=== PATIENT | male | born 1950 | race Caucasian/White ===

== ENCOUNTER 2016-08-24 10:30 | Observation (INO) | payer BC, MEDICARE ==
[2016-08-24] MEDS ORDERED: NS 0.9% 1000 ML* 2,000 ML IV ONE (11:29)
[2016-08-24] MEDS ORDERED: Famotidine IV* 10 MG/ML 2 ML (20 mg) IV ONE (11:30)
[2016-08-24 11:50] LABS: Hematocrit 32 % (42-52); Hemoglobin 10.7 g/dl (14.0-18.0); Mean Corpuscular HGB Conc 34 g/dl (31-36); Mean Corpuscular Hemoglobin 35 pg (27-31); Mean Corpuscular Volume 103 fL (80-94); Mean Platelet Volume 8 um3 (7.4-10.4); Red Blood Count 3.08 10^6/ul (4.0-5.4); Red Cell Distribution Width 16 % (10.5-15); White Blood Count 5.8 10^3/ul (3.5-10.8)
[2016-08-24 12:07] LABS: Albumin 3.5 g/dL (3.2-5.2); BUN/Creatinine Ratio 8.6 (8-20); C Reactive Protein 2.54 mg/L (< 5.00); Calcium 8.5 mg/dL (8.6-10.3); EGFR African American 180.3 (>60); EGFR Non-African American 140.2 (>60); Globulin 2.4 g/dL (2-4); Magnesium 1.5 mg/dL (1.9-2.7); Total Protein 5.9 g/dL (6.4-8.9)
[2016-08-24 12:08] LABS: Potassium 2.6 mmol/L (3.5-5.0)
[2016-08-24 12:09] LABS: Troponin I 0.01 ng/mL (<0.04)
[2016-08-24 12:17] LABS: TSH (Thyroid Stimulating Horm) 0.7 mcIU/mL (0.34-5.60)
--- NOTE | 2016-08-24 12:20 | RAD ---
HISTORY: Syncope COMPARISONS: March 26, 2010 VIEWS:1: Single frontal portable view of the chest at 11:30 AM FINDINGS: LINES AND TUBES: None. CARDIOMEDIASTINAL SILHOUETTE: The cardiomediastinal silhouette is normal for portable technique. PLEURA: The costophrenic angles are sharp. No pleural abnormalities are noted. LUNG PARENCHYMA: The lungs are clear. ABDOMEN: The upper abdomen is clear. There is no subphrenic gas. BONES AND SOFT TISSUES: No bone or soft tissue abnormalities are noted. IMPRESSION: NO ACTIVE CARDIOPULMONARY DISEASE.
[2016-08-24] MEDS ORDERED: Magnesium Sulfate 2 GM IV* 2 GM/50 ML BAG IVPB ONE (12:45)
[2016-08-24 13:28] LABS: Urine Bilirubin Negative (Negative); Urine Glucose Negative (Negative); Urine Nitrite Negative (Negative)
[2016-08-24] MEDS: NS 0.9% w/ 20 Meq KCL 1000 ML* 1,000 ML IV SCH ×2 (14:01→21:09)
[2016-08-24] MEDS ORDERED: Iohexol 300* (CONTRAST) 10 ML SDV IV ONE (15:16)
[2016-08-24] MEDS ORDERED: Nicotine Inhaler* 10 MG AMP INH PRN (16:19)
[2016-08-24] MEDS ORDERED: Mouth Piece, Nicotine* 1 EACH CARTRIDGE INH PRN (16:19)
[2016-08-24] MEDS: KCL 20 MEQ/100 ML IVPREMIX* 20 MEQ/100 ML BAG IV SCH ×3 (16:24→22:24)
[2016-08-24] MEDS: Nicotine PATCH 14 MG/24 HR* PATCH TRANSDERM SCH (16:32)
[2016-08-24 16:56] LABS: Hematocrit 31 % (42-52); Hemoglobin 10.5 g/dl (14.0-18.0); Mean Corpuscular HGB Conc 33 g/dl (31-36); Mean Corpuscular Hemoglobin 35 pg (27-31); Mean Corpuscular Volume 104 fL (80-94); Mean Platelet Volume 8 um3 (7.4-10.4); Red Blood Count 3.02 10^6/ul (4.0-5.4); Red Cell Distribution Width 16 % (10.5-15); White Blood Count 4.7 10^3/ul (3.5-10.8)
--- NOTE | 2016-08-24 17:47 | RAD ---
INDICATION: Abdominal pain. Syncope. COMPARISON: CT April 07, 2016 TECHNIQUE: Axial source images were obtained from the hemidiaphragms to the symphysis pubis following administration of oral and intravenous contrast. 85 mL Omnipaque 300 was utilized. Coronal and sagittal reconstructed images were acquired. Lung bases: There is minimal left basilar scarring or atelectasis. Liver: The liver is mildly enlarged with findings of hepatic steatosis. There are no masses. There is no ductal dilatation. Gallbladder: There are no calcified gallstones. There is no evidence of wall thickening or pericholecystic fluid. Spleen: The spleen is normal in size. There are no masses. Pancreas: There is no focal pancreatic mass or ductal dilatation. Adrenal glands: There is no evidence of adrenal mass. Kidneys: The kidneys are normal in size and position. There are prompt nephrograms and there is prompt excretion bilaterally. There are no renal parenchymal masses. There is no evidence of nephrolithiasis. Adenopathy: There is no evidence of adenopathy by size criteria. Fluid collections: There is a small amount of mesenteric edema with trace ascites in the minor pelvis. Vessels:There are atherosclerotic changes involving the aorta and iliac vessels. There is no focal aneurysm. The IVC appears normal. GI tract: The stomach and proximal small bowel is unremarkable. There is a rounded soft tissue density in the region of the terminal ileum measuring 1.8 cm. This could represent a small bowel mass or could even represent an appendiceal mass. Suggest colonoscopy. Pelvic organs: The prostate is mildly enlarged Bladder: There is trabeculation of the bladder wall. Abdominal and pelvic soft tissues: There is a fat-containing left inguinal hernia spondylitic change lumbar spine. Osseous structures: Spondylitic change of the lumbar spine with multilevel vacuum disc phenomena, endplate sclerosis, and marginal osteophyte formation. Other: None IMPRESSION: 1. Marked hepatic steatosis 2. Possible mass terminal ileum. Suggest follow-up colonoscopy 3. Mild prostatic enlargement. 4. Trabeculation of the bladder wall 5. Fat-containing left femoral hernia
--- NOTE | 2016-08-24 18:00 | ED ---
Giovanny Abad Erika, scribed for Rene Hatch MD on 08/24/16 at 1130 . Syncope/Near Syncope - HPI Summary HPI Summary: Patient is a 65-year-old male presenting to the ED with a CC of syncopal episode this morning. Patient reports that he experienced a syncopal episode right after he stood up from bed this morning. He notes lightheadedness prior to the episode, but denies chest pain. He estimates LOC to be 10-15 minutes. Patient was able to get up by himself afterwards, and denies chest pain after the episode as well. Patient was first seen at [place] this morning and was sent to the ED. He reports similar episodes of syncope, most recently a few weeks ago. Patient also reports that he has had constant epigastric pain for the past few months, as well as slight diffuse abdominal pain. Pain is aggravated by food. Patient notes that he had been having diarrhea, so has been taking kaopectate for a few months. Since then, he states he has 1 BM/day which is usually hard and black. Today, patient had a soft, black BM. Patient denies chest and groin pain. Patient also denies recent illness and dehydration. Patient reports a Hx GERD, but states he is not compliant with his medication. He denies Hx HTN, abdominal surgeries. Patient drinks a few drinks/day. - History Of Current Complaint Time Seen by Provider: 08/24/16 10:58 Hx Obtained From: Patient Onset/Duration: Gradual Onset, Lasting Minutes - 10-15 minute LOC, Resolved Timing: Constant Context: Unwitnessed, Loss Of Consciousness Activity At Onset: Exertion - Stood up from bed Aggravating Factor(s): Position Change - supine to erect Alleviating Factor(s): Spontaneous Resolution Associated Signs And Symptoms: GI Blood Loss - possible, Lightheadedness - Allergies/Home Medications Allergies/Adverse Reactions: Allergies Allergy/AdvReac Type Severity Reaction Status Date / Time No Known Allergies Allergy Verified 04/07/16 18:49 Home Medications: Home Medications NK [No Home Medications Reported] 08/24/16 [History Confirmed 08/24/16] PMH/Surg Hx/FS Hx/Imm Hx Cardiovascular History: Denies: Hx Hypercholesterolemia, Hx Hypertension GI History: Reports: Hx Gastroesophageal Reflux Disease - Family History Known Family History: Positive: Cardiac Disease, Other - Cancer - Social History Alcohol Use: Daily Hx Substance Use: No Substance Use Type: Reports: None Hx Tobacco Use: Yes Smoking Status (MU): Heavy Every Day Tobacco Smoker Review of Systems Negative: Chest Pain Gastrointestinal: Other - black stools Positive: Abdominal Pain Neurological: Other - lightheadedness Positive: Syncope All Other Systems Reviewed And Are Negative: Yes Physical Exam Triage Information Reviewed: Yes Vital Signs On Initial Exam: Temp Pulse Resp BP Pulse Ox 98.2 F 99 25 124/86 97 08/24/16 11:00 08/24/16 12:00 08/24/16 12:00 08/24/16 12:00 08/24/16 12:00 Vital Signs Reviewed: Yes Appearance: Positive: Well-Appearing, No Pain Distress Skin: Positive: Warm, Skin Color Reflects Adequate Perfusion, Dry Head/Face: Positive: Normal Head/Face Inspection Eyes: Positive: EOMI, BLAIR ENT: Positive: Normal ENT inspection Neck: Positive: Supple, Nontender Respiratory/Lung Sounds: Positive: Clear to Auscultation, Breath Sounds Present Cardiovascular: Positive: RRR Abdomen Description: Positive: Soft, Other: - epigastric tenderness Bowel Sounds: Positive: Present Musculoskeletal: Positive: Normal, Strength/ROM Intact Neurological: Positive: Normal, Sensory/Motor Intact, Alert, Oriented to Person Place, Time Psychiatric: Positive: Affect/Mood Appropriate Diagnostics - Vital Signs Vital Signs Temp Pulse Resp BP Pulse Ox 08/24/16 14:30 93 18 133/78 98 08/24/16 14:00 93 23 128/80 97 08/24/16 13:30 24 131/86 08/24/16 13:14 27 137/91 08/24/16 13:13 23 08/24/16 12:30 97 21 130/82 98 08/24/16 12:00 99 25 124/86 97 08/24/16 11:30 102 23 110/93 96 08/24/16 11:12 103 133/85 94 08/24/16 11:00 98.2 F 100 20 133/79 94 08/24/16 10:39 102 97 - Laboratory Lab Results: Lab Results 08/24/16 08/24/16 08/24/16 Range/Units 11:28 11:28 11:28 WBC 5.8 (3.5-10.8) 10^3/ul RBC 3.08 L (4.0-5.4) 10^6/ul Hgb 10.7 L (14.0-18.0) g/dl Hct 32 L (42-52) % MCV 103 H (80-94) fL MCH 35 H (27-31) pg MCHC 34 (31-36) g/dl RDW 16 H (10.5-15) % Plt Count 341 (150-450) 10^3/ul MPV 8 (7.4-10.4) um3 Neut % (Auto) 67.9 (38-83) % Lymph % (Auto) 22.0 L (25-47) % [place] % (Auto) 8.9 (1-9) % Eos % (Auto) 0.4 (0-6) % Baso % (Auto) 0.8 (0-2) % Absolute Neuts (auto) 4.0 (1.5-7.7) 10^3/ul Absolute Lymphs (auto) 1.3 (1.0-4.8) 10^3/ul Absolute Monos (auto) 0.5 (0-0.8) 10^3/ul Absolute Eos (auto) 0 (0-0.6) 10^3/ul Absolute Basos (auto) 0 (0-0.2) 10^3/ul Absolute Nucleated RBC 0.01 10^3/ul Nucleated RBC % 0.2 INR (Anticoag Therapy) 0.89 (0.89-1.11) APTT 26.2 (26.0-36.3) seconds Sodium (133-145) mmol/L Potassium (3.5-5.0) mmol/L Chloride (101-111) mmol/L Carbon Dioxide (22-32) mmol/L Anion Gap (2-11) mmol/L BUN (6-24) mg/dL Creatinine (0.67-1.17) mg/dL Est GFR ( Amer) (>60) Est GFR (Non-Af Amer) (>60) BUN/Creatinine Ratio (8-20) Glucose (70-100) mg/dL Lactic Acid (0.5-2.0) mmol/L Calcium (8.6-10.3) mg/dL Magnesium (1.9-2.7) mg/dL Total Bilirubin (0.2-1.0) mg/dL AST (13-39) U/L ALT (7-52) U/L Alkaline Phosphatase (34-104) U/L Total Creatine Kinase (10-223) U/L CK-MB (CK-2) (0.6-6.3) ng/mL Troponin I (<0.04) ng/mL C-Reactive Protein (< 5.00) mg/L B-Natriuretic Peptide 109 H ( - 100) pg/mL Total Protein (6.4-8.9) g/dL Albumin (3.2-5.2) g/dL Globulin (2-4) g/dL Albumin/Globulin Ratio (1-3) Lipase (11.0-82.0) U/L TSH (0.34-5.60) mcIU/mL Urine Color Urine Appearance Urine pH (5-9) Ur Specific [place] (1.010-1.030) Urine Protein (Negative) Urine Ketones (Negative) Urine Blood (Negative) Urine Nitrate (Negative) Urine Bilirubin (Negative) Urine Urobilinogen (Negative) Ur Leukocyte Esterase (Negative) Urine Glucose (Negative) Blood Type Antibody Screen 08/24/16 08/24/16 08/24/16 Range/Units 11:28 11:28 11:28 WBC (3.5-10.8) 10^3/ul RBC (4.0-5.4) 10^6/ul Hgb (14.0-18.0) g/dl Hct (42-52) % MCV (80-94) fL MCH (27-31) pg MCHC (31-36) g/dl RDW (10.5-15) % Plt Count (150-450) 10^3/ul MPV (7.4-10.4) um3 Neut % (Auto) (38-83) % Lymph % (Auto) (25-47) % [place] % (Auto) (1-9) % Eos % (Auto) (0-6) % Baso % (Auto) (0-2) % Absolute Neuts (auto) (1.5-7.7) 10^3/ul Absolute Lymphs (auto) (1.0-4.8) 10^3/ul Absolute Monos (auto) (0-0.8) 10^3/ul Absolute Eos (auto) (0-0.6) 10^3/ul Absolute Basos (auto) (0-0.2) 10^3/ul Absolute Nucleated RBC 10^3/ul Nucleated RBC % INR (Anticoag Therapy) (0.89-1.11) APTT (26.0-36.3) seconds Sodium 135 (133-145) mmol/L Potassium 2.6 L* (3.5-5.0) mmol/L Chloride 95 L (101-111) mmol/L Carbon Dioxide 31 (22-32) mmol/L Anion Gap 9 (2-11) mmol/L BUN 5 L (6-24) mg/dL Creatinine 0.58 L (0.67-1.17) mg/dL Est GFR ( Amer) 180.3 (>60) Est GFR (Non-Af Amer) 140.2 (>60) BUN/Creatinine Ratio 8.6 (8-20) Glucose 104 H (70-100) mg/dL Lactic Acid 2.4 H* (0.5-2.0) mmol/L Calcium 8.5 L (8.6-10.3) mg/dL Magnesium 1.5 L (1.9-2.7) mg/dL Total Bilirubin 1.00 (0.2-1.0) mg/dL AST 47 H (13-39) U/L ALT 36 (7-52) U/L Alkaline Phosphatase 97 (34-104) U/L Total Creatine Kinase 58 (10-223) U/L CK-MB (CK-2) 3.0 (0.6-6.3) ng/mL Troponin I 0.01 (<0.04) ng/mL C-Reactive Protein 2.54 (< 5.00) mg/L B-Natriuretic Peptide ( - 100) pg/mL Total Protein 5.9 L (6.4-8.9) g/dL Albumin 3.5 (3.2-5.2) g/dL Globulin 2.4 (2-4) g/dL Albumin/Globulin Ratio 1.5 (1-3) Lipase 24 (11.0-82.0) U/L TSH 0.70 (0.34-5.60) mcIU/mL Urine Color Urine Appearance Urine pH (5-9) Ur Specific [place] (1.010-1.030) Urine Protein (Negative) Urine Ketones (Negative) Urine Blood (Negative) Urine Nitrate (Negative) Urine Bilirubin (Negative) Urine Urobilinogen (Negative) Ur Leukocyte Esterase (Negative) Urine Glucose (Negative) Blood Type O Positive Antibody Screen Negative 08/24/16 Range/Units 13:12 WBC (3.5-10.8) 10^3/ul RBC (4.0-5.4) 10^6/ul Hgb (14.0-18.0) g/dl Hct (42-52) % MCV (80-94) fL MCH (27-31) pg MCHC (31-36) g/dl RDW (10.5-15) % Plt Count (150-450) 10^3/ul MPV (7.4-10.4) um3 Neut % (Auto) (38-83) % Lymph % (Auto) (25-47) % [place] % (Auto) (1-9) % Eos % (Auto) (0-6) % Baso % (Auto) (0-2) % Absolute Neuts (auto) (1.5-7.7) 10^3/ul Absolute Lymphs (auto) (1.0-4.8) 10^3/ul Absolute Monos (auto) (0-0.8) 10^3/ul Absolute Eos (auto) (0-0.6) 10^3/ul Absolute Basos (auto) (0-0.2) 10^3/ul Absolute Nucleated RBC 10^3/ul Nucleated RBC % INR (Anticoag Therapy) (0.89-1.11) APTT (26.0-36.3) seconds Sodium (133-145) mmol/L Potassium (3.5-5.0) mmol/L Chloride (101-111) mmol/L Carbon Dioxide (22-32) mmol/L Anion Gap (2-11) mmol/L BUN (6-24) mg/dL Creatinine (0.67-1.17) mg/dL Est GFR ( Amer) (>60) Est GFR (Non-Af Amer) (>60) BUN/Creatinine Ratio (8-20) Glucose (70-100) mg/dL Lactic Acid (0.5-2.0) mmol/L Calcium (8.6-10.3) mg/dL Magnesium (1.9-2.7) mg/dL Total Bilirubin (0.2-1.0) mg/dL AST (13-39) U/L ALT (7-52) U/L Alkaline Phosphatase (34-104) U/L Total Creatine Kinase (10-223) U/L CK-MB (CK-2) (0.6-6.3) ng/mL Troponin I (<0.04) ng/mL C-Reactive Protein (< 5.00) mg/L B-Natriuretic Peptide ( - 100) pg/mL Total Protein (6.4-8.9) g/dL Albumin (3.2-5.2) g/dL Globulin (2-4) g/dL Albumin/Globulin Ratio (1-3) Lipase (11.0-82.0) U/L TSH (0.34-5.60) mcIU/mL Urine Color Yellow Urine Appearance Clear Urine pH 6.0 (5-9) Ur Specific [place] 1.010 (1.010-1.030) Urine Protein Negative (Negative) Urine Ketones Trace H (Negative) Urine Blood Negative (Negative) Urine Nitrate Negative (Negative) Urine Bilirubin Negative (Negative) Urine Urobilinogen Negative (Negative) Ur Leukocyte Esterase Negative (Negative) Urine Glucose Negative (Negative) Blood Type Antibody Screen Result Diagrams: 08/24/16 16:44 08/24/16 11:28 Diagnostic Studies Comment: Stool occult blood - negative Lab Statement: Any lab studies that have been ordered have been reviewed, and results considered in the medical decision making process. - Radiology CXR Radiology Interpretation Completed By: Radiologist - IMPRESSION: NO ACTIVE CARDIOPULMONARY DISEASE. - CT CT A/P W/ CT Interpretation Completed By: Radiologist - IMPRESSION: 1. Marked hepatic steatosis 2. Possible mass terminal ileum. Suggest follow-up colonoscopy 3. Mild prostatic enlargement. 4. Trabeculation of the bladder wall 5. Fat- containing left femoral hernia - EKG 11:34 Cardiac Rate: NL - at 98 bpm EKG Rhythm: Sinus Rhythm Ectopy: None EKG Interpretation: Depressed ST in V4-V5 Re-Evaluation - Re-Evaluation First Eval Re-Evaluation Time: 12:59 Comment: Discussed lab results and XR with patient. Discussed possibility of admission. Pt declines admission at this time Second Eval Re-Evaluation Time: 13:23 Comment: On further evaluation and counseling, patient agrees to admission. Will contact hospitalist Course/Dx Assessment/Plan: ADMIT HOSPITALIST STABLE. - Diagnoses Provider Diagnoses: Syncope, Abdominal pain - Physician Notifications Discussed Care Of Patient With: Dr. Hi (hospitalist) at 13:24 - agrees to admit Discharge - Discharge Plan Condition: Stable Disposition: ADMITTED TO [facility] The documentation as recorded by the Giovanny dobbs Erika accurately reflects the service I personally performed and the decisions made by me, Rene Hatch MD.
[2016-08-24] MEDS ORDERED: Nicotine Patch Removal NOTE PATCH OFF SCH (21:00)
[2016-08-24] MEDS: Heparin VIAL(*) 5000 UNITS/ML VIAL (FIVE THOUSAND) SUBCUT SCH (22:27)
--- NOTE | 2016-08-24 22:57 | HP ---
HISTORY AND PHYSICAL: DATE OF ADMISSION: 08/24/16 PRIMARY CARE PHYSICIAN: JOSE R Lizarraga ATTENDING PHYSICIAN: Dr. Carl Hi *(dictation provided by Allison Hurtado NP) CHIEF COMPLAINT: Abdominal pain and fainting. HISTORY OF PRESENT ILLNESS: Mr. Tavarez is a 65-year-old male with a past medical history of reported hypertension but no medications, who presents today to the hospital with concern for abdominal pain and episodes of passing out over the past 5 to 6 months. Mr. Tavarez states that he has had issues with ongoing mid and left quadrant abdominal pain as well as daily diarrhea for several months. From his recollection, this has at least been in the past 5 to 6 months. He reports that he feels dizzy and lightheaded. He has had multiple episodes where he goes from a sitting to standing position and passes out. His daughter who is in the room notes that he has also had this episode of passing out while in a standing position. He has had chills in the a.m., but he has had no fever. He reports that his stools are loose and black. He suspected that the blackness of the stool is secondary to Pepto-Bismol. He states he drinks one bottle of Pepto-Bismol per week and that this "helps." His daughter who is here notes that he has had a significant weight loss. Approximately 1 year ago, he had a 40- to 50-pound weight loss for which he did seek out medical care. It is not clear exactly what that workup was as he cannot recall and she is not aware. He states that since then, over this year, he has probably lost 20 pounds. He reports a very poor appetite. He notes that daily intake would be a piece of toast for breakfast, half a sandwich for lunch, and no dinner. He states he does not eat simply because his appetite is poor. He does not endorse any nausea or vomiting. He is a daily drinker and reports drinking what he calls 2 whiskeys a day. He also is a continued at least half a pack smoker. In the emergency room, Mr. Tavarez had a chest x-ray which showed no acute process. He had labs, which showed a new anemia with a hemoglobin of 10.7. He has low potassium at 2.6, lactic acid 2.4, and a magnesium of 1.5. He is ordered to have a CT of the abdomen and pelvis, but it is not completed yet. PAST MEDICAL HISTORY: 1. Question of alcoholism. 2. Osteoarthritis. 3. History of colonic polyps. MEDICATIONS: Pepto-Bismol. ALLERGIES: No known drug allergies. FAMILY HISTORY: The patient reports that his father is still alive, but has had coronary artery disease and mother from an abdominal cancer, type unknown. SOCIAL HISTORY: The patient is a half a pack to a pack a day smoker. He drinks 2 whiskeys a day and measures that out at about a 2-inch level with his hand for me today. His daughter nods in the background that he has had issues with alcoholism in the past. There is no report of drug use. He lives with his . He states that his daughter Ashley would be the healthcare proxy. REVIEW OF SYSTEMS: Constitutional: No fevers, no chills, positive for weight loss somewhere between 60 and 70 pounds over the past 18 months or more. Cardiac: No chest pain. No edema. Respiratory: No cough, no hemoptysis, no shortness of breath. GI: No nausea or vomiting. Positive for diarrhea. Positive for mid and left quadrant abdominal pain. : No gross hematuria or dysuria. Neuro: No focal weakness or sensory loss. Eyes: No visual complaints. ENT: No dysphagia. Musculoskeletal: No arthralgias or myalgias. Skin: No rashes or lesions. Psych: No depression or anxiety. PHYSICAL EXAMINATION GENERAL: Mr. Tavarez is lying in bed. He is in no acute distress. He is calm and cooperative with my examination. VITAL SIGNS: Temperature 98.5, heart rate 109, respiratory rate 18, O2 saturation is 99% on room air, blood pressure 142/79. HEART: S1 and S2. No murmur, rubs, or gallop. Regular. LUNGS: Clear to auscultation bilaterally with no accessory muscle use and good aeration. ABDOMEN: Soft. There is tenderness to palpation along the mid abdomen and both along the left and right quadrant. He initially did not know pain until pressed up in the right upper quadrant. He does appear to have some abdominal distention and perhaps splenomegaly. Liver was unable to be palpated today. EXTREMITIES: No cyanosis or edema. SKIN: Intact. NEUROLOGIC: He is alert and oriented x3. He moves all extremities equally. There is no facial asymmetry or focal weakness. Extraocular movements are intact. LABORATORY DATA/DIAGNOSTIC STUDIES: Sodium 135, potassium 2.6, chloride 95, serum bicarbonate 31, BUN 5, creatinine 0.58, glucose 104, lactic acid 2.4, magnesium 1.5, CRP 2.54, BNP 109. WBC 5.8, hemoglobin 10.7, hematocrit 32, and platelet count 341. INR 0.89. Chest x-ray shows no acute process. EKG shows a sinus rhythm with heart rate of 90. No evidence of ischemia. ASSESSMENT: Mr. Tavarez is a 65-year-old male with no significant past medical history as he has not routinely sought out medical care, who presents today to the hospital with concern for 5 to 6 months or more of abdominal pain, diarrhea , now with lightheadedness and dizziness. PLAN: Our plans are for observation in the hospital for the followin. Abdominal pain. The patient's story is certainly concerning as he has had several months of diarrhea with significant weight loss and no appetite, now with lightheadedness, dizziness, and passing out. So far, his workup has been unrevealing but we are waiting for CT of the abdomen and pelvis. The patient's guaiac stool is negative, so perhaps his dark stool is related to Pepto-Bismol. 2. Syncope. I suspect the patient's dizziness and lightheadedness is secondary to dehydration and orthostasis. Orthostatic vital signs are yet to be checked but they are ordered. The patient will have a telemetry monitoring. Plan to check a transthoracic echocardiogram given the syncope. 3. Hypokalemia. I suspect this is secondary to diarrhea. Plan to replete and recheck in the a.m. 4. Hypomagnesemia. Again secondary to diarrhea. Plan to replete and check in the a.m. 5. Anemia. The patient's hemoglobin is 10.7, which is lower than last check, which was sometime ago. He is having dark tarry stools, but I see that the guaiac is negative. Plan to hydrate and recheck in the a.m. No indication for transfusion at this point. 6. Lactic acidosis. The patient's lactic acid is mildly elevated. The patient has been hydrated. We plan to recheck that now. 7. DVT prophylaxis with heparin subcu. 8. Code status. He is a DNR and the form was completed in the presence of his daughter. 9. Disposition. To telemetry. TIME SPENT: Approximately 70 minutes was spent on admission of this patient; more than half the time was spent with the patient at the bedside reviewing the events leading up to this hospitalization, performing the physical examination, and reviewing the plan of care. ALLISON HURTADO NP CC: JOSE R Lizarraga* [id number]/CPS #: [id number] MTDD
[2016-08-25] MEDS: NS 0.9% w/ 20 Meq KCL 1000 ML* 1,000 ML IV SCH (03:15)
[2016-08-25] MEDS: Heparin VIAL(*) 5000 UNITS/ML VIAL (FIVE THOUSAND) SUBCUT SCH ×2 (05:30→14:26)
[2016-08-25 07:05] LABS: BUN/Creatinine Ratio 6.3 (8-20); Calcium 7.7 mg/dL (8.6-10.3); EGFR African American 224.3 (>60); EGFR Non-African American 174.4 (>60); Potassium 3.2 mmol/L (3.5-5.0)
[2016-08-25] MEDS: Nicotine PATCH 14 MG/24 HR* PATCH TRANSDERM SCH (08:48)
[2016-08-25] MEDS: KCL 20 MEQ/100 ML IVPREMIX* 20 MEQ/100 ML BAG IV SCH ×2 (08:48→12:45)
--- NOTE | 2016-08-25 11:14 | ECHO ---
Patient: BALTAZAR BAXTER [facility] Rec#: [id number] : 1950 Date: 08/25/2016 Age: 65y Height: 175.26 cm / 69.0 in Weight: 63.5 kg / 140.0 lbs Sex: M BSA: 1.78 Room#: 433 Admit Date#: 08/24/2016 Type: Inpatient Referring: Allison Hurtado NP Reading: Len Abbasi MD Mill Stenciler: Elvia Josue Mill Stenciler: Juana Sanchez RN RDCS Transthoracic Echocardiogram Indication: Syncope BP: 128/74 HR: 80 Rhythm: NSR Findings History: GERD, Smoker, osteoarthritis, ETOH use. Technical Comments: The study is technically limited due to the patient's smoking history. Completed at 0925. Left Ventricle: The left ventricular chamber size is normal. Mild concentric left ventricular hypertrophy is observed. There is increased basal septal hypertrophy noted without evidence of an increased gradient across the left ventricular outflow tract. Global left ventricular wall motion and contractility are within normal limits. There is normal left ventricular systolic function. The estimated ejection fraction is 50-55%. Closer to 55%. There is a left ventricular septal wall motion abnormality observed, possibly due to the presence of a right bundle branch block. There is an E to A reversal in the mitral valve flow pattern suggestive of diastolic dysfunction. Left Atrium: The left atrial chamber size is normal. Right Ventricle: The right ventricle wall thickness is mildly increased. The right ventricular cavity size is normal. The right ventricular global systolic function is normal. Right Atrium: The right atrial cavity size is normal. Aortic Valve: The aortic valve is trileaflet. The aortic valve leaflets are mildly thickened. There is moderate thickening of the left coronary cusp. There is moderate thickening of the right coronary cusp. Systolic excursion of the right coronary cusp is reduced. Systolic excursion of the left coronary cusp is reduced. There is aortic annular calcification. There is a trace of aortic regurgitation. There is no evidence of aortic stenosis. Mitral Valve: Moderate mitral annular calcification present. The mitral valve leaflets are mildly thickened. There is trace to mild mitral regurgitation. There is no evidence of mitral stenosis. Tricuspid Valve: The tricuspid valve leaflets are mildly thickened. There is trace tricuspid regurgitation. There is evidence that pulmonary hypertension may be underestimated. There is no tricuspid stenosis. Pulmonic Valve: The pulmonic valve appears normal. There is a trace pulmonic regurgitation. There is no pulmonic stenosis. Pericardium: There is no significant pericardial effusion. Aorta: There is no dilatation of the ascending aorta. The aortic arch is not well visualized. There is no dilation of the aortic root. Pulmonary Artery: The main pulmonary artery appears normal. Venous: The inferior vena cava appears normal in size. There is a greater than 50% respiratory change in the inferior vena cava dimension. Summary: There was not any prior study for comparison. Conclusions Mild concentric left ventricular hypertrophy is observed. There is increased basal septal hypertrophy noted without evidence of an increased gradient across the left ventricular outflow tract. The estimated ejection fraction is 50-55%. Closer to 55%. There is a left ventricular septal wall motion abnormality observed, possibly due to the presence of a right bundle branch block. There is an E to A reversal in the mitral valve flow pattern suggestive of diastolic dysfunction. The right ventricle wall thickness is mildly increased. The aortic valve leaflets are mildly thickened. There is moderate thickening of the left coronary cusp and the right coronary cusp. Systolic excursion of the right coronary cusp is reduced and the left coronary cusp is reduced. There is trace to mild mitral regurgitation. There is trace tricuspid regurgitation. Measurements Name Value Normal Range RVIDd (AP) 2D 2.4 cm (0.9 - 2.6) RVDdMajor (2D) 3.5 cm (2.2 - 4.4) RVAW (2D) 0.6 cm (0.2 - 0.5) RAd ISD 4CH 4.8 cm (3.4 - 4.9) RA (A4C)W 3.6 cm (2.9 - 4.6) IVSd (2D) 1.3 cm (0.6 - 1) LVPWd (2D) 1.2 cm (0.6 - 1) LVIDd (2D) 3.7 cm (3.6 - 5.4) LVIDs (2D) 2.7 cm - LV FS (2D) 28 % (25 - 45) Aortic Annulus 2.2 cm (1.4 - 2.6) Ao root diameter (2D) 3.3 cm (2.1 - 3.5) Ascending Ao 3.3 cm (2.1 - 3.4) LA dimension (AP) 2D 3.3 cm (2.3 - 3.8) LAd ISD 4CH 5.2 cm (2.9 - 5.3) LA ISD 4CH W 3.8 cm (2.5 - 4.5) Name Value Normal Range LA ESV SP 4CH (A/L) 39 ml - LA ESV SP 2CH (A/L) 65 ml - LA ESV BP (A/L) 51 ml - LA ESV BP (A/L) index 28.64 ml/m2 - LA ESV SP 4CH (MOD) 35 ml - LA ESV SP 2CH (MOD) 62 ml - Name Value Normal Range MV E-wave Vmax 0.6 m/sec - MV deceleration time 159 msec - MV A-wave Vmax 1.1 m/sec - MV E:A ratio 0.54 ratio - LV septal e' Vmax 0.08 m/sec - LV lateral e' Vmax 0.09 m/sec - LV E:e' septal ratio 7.5 ratio - LV E:e' lateral ratio 6.7 ratio - Name Value Normal Range AV Vmax 1.6 m/sec - AV VTI 33 cm - AV peak gradient 9.9 mmHg - AV mean gradient 5.5 mmHg - LVOT diameter 2 cm - LVOT Vmax 1.2 m/sec - LVOT VTI 23 cm - LVOT peak gradient 5.54 mmHg - LVOT mean gradient 3.31 mmHg - Name Value Normal Range TR Vmax 1.4 m/sec - TR peak gradient 8 mmHg - RAP 3 mmHg - RVSP 11 mmHg - IVC diameter 1.7 cm - Name Value Normal Range PV Vmax 0.7 m/sec - PV peak gradient 1.8 mmHg -
--- NOTE | 2016-08-25 11:58 | PN ---
Subjective Date of Service: 08/25/16 Interval History: Patient seen and examined at bedside. Pt reports mild lightheadedness when first getting up, but it gets betted after a few seconds. Denies fever, chills, shortness of breath, chest discomfort, N/V. Pt states that he continues to have diarrhea. Tele: Sinus rhythm to sinus tachycardia, rate 70-100's. Family History: Unchanged from Admission Social History: Unchanged from Admission Past Medical History: Unchanged from Admission Objective Active Medications: Device (Nicotine Mouth Piece*) 1 each INH .USE WITH NICOTROL PRN Reason: CRAVING Heparin Sodium (Porcine) (Heparin Vial(*)) 5,000 units SUBCUT Q8HR [facility] Potassium Chloride/Sodium Chloride (Ns 0.9% W/ 20 Meq Kcl 1000 Ml*) 1,000 mls @ 150 mls/hr IV PER RATE [facility] Potassium Chloride (Potassium Chloride 20 Meq/100 Ml Ivpremix*) 20 meq in 100 mls @ 50 mls/hr IV Q2H SCHStop: 08/25/16 12:59 Nicotine (Nicotine Inhaler*) 10 mg INH Q2H PRN Reason: CRAVING Nicotine (Nicotine Patch 14 Mg/24 Hr*) 1 patch TRANSDERM Q24HR [facility] Pharmacy Profile Note (Nicotine Patch Removal Note*) 1 note PATCH OFF 2100 [facility] Vital Signs 08/24/16 08/24/16 08/24/16 15:00 15:03 15:30 Temperature Pulse Rate 116 103 105 Respiratory 27 20 17 Rate Blood Pressure 154/129 120/73 (mmHg) O2 Sat by Pulse 99 91 100 Oximetry 08/24/16 08/24/16 08/25/16 15:56 19:31 00:35 Temperature 98.5 F 98.4 F 98.0 F Pulse Rate 96 95 83 Respiratory 18 16 16 Rate Blood Pressure 142/79 148/85 123/67 (mmHg) O2 Sat by Pulse 97 100 98 Oximetry 08/25/16 08/25/16 08/25/16 03:40 07:32 08:00 Temperature 98.3 F 98.1 F Pulse Rate 89 81 Respiratory 20 18 18 Rate Blood Pressure 128/74 132/78 (mmHg) O2 Sat by Pulse 99 100 Oximetry Oxygen Devices in Use Now: None Appearance: NAD, laying in bed Eyes: No Scleral Icterus, PERRLA Ears/Nose/Mouth/Throat: NL Teeth, Lips, Gums, Mucous Membranes Moist Neck: NL Appearance and Movements; NL JVP, Trachea Midline Respiratory: Symmetrical Chest Expansion and Respiratory Effort, Clear to Auscultation Cardiovascular: NL Sounds; No Murmurs; No JVD, RRR Abdominal: NL Sounds; No Tenderness; No Distention Extremities: No Edema Skin: No Rash or Ulcers Neurological: Alert and Oriented x 3, NL Muscle Strength and Tone Lines/Tubes/Other Access: Clean, Dry and Intact Peripheral IV - site benign Nutrition: Taking PO's Result Diagrams: 08/24/16 16:44 08/25/16 06:30 Additional Lab and Data: Diagnostic Imaging: CT abdomen - possible mass in the terminal ileum. Echo - Mild LVH, increased basal septal hypertrophy, EF 50-55%, left ventricular septal wall motion abnormality possible d/t RBBB, E to A reversal in mitral valve flow pattern suggestive of diastolic dysfunction. Assess/Plan/Problems-Billing Assessment: Mr. Tavarez is a 65 yo male with no significant past medical - Patient Problems (1) Abdominal pain Code(s): R10.9 - UNSPECIFIED ABDOMINAL PAIN SNOMED Code(s): 27899423 Comment: - Reports improvement in abdominal pain, continues to have diarrhea - Stool Guaiac negative, suspect dark colored stool may be related to Pepto- Bismol use - Continues to have diarrhea - CT abdomen shows a possible mass in the terminal ileum - GI consult pending (2) Syncope Code(s): R55 - SYNCOPE AND COLLAPSE SNOMED Code(s): 025739948 Comment: - Pt continues to have mild lightheadedness when first getting up - No events on Tele - Orthostatic vital signs pending - Echo - Mild LVH, increased basal septal hypertrophy, EF 50-55%, left ventricular septal wall motion abnormality possible d/t RBBB, E to A reversal in mitral valve flow pattern suggestive of diastolic dysfunction - Suspect r/t dehydration (3) Electrolyte abnormality Code(s): E87.8 - OTH DISORDERS OF ELECTROLYTE AND FLUID BALANCE, NEC SNOMED Code(s): 549714868 Comment: - Hypokalemia, Pt continues to have low K+. Will get further replacement today - Hypomagnesium, MG+ for today pending. Will give replacement if needed (4) Anemia Code(s): D64.9 - ANEMIA, UNSPECIFIED SNOMED Code(s): 811183463 Comment: - HH stable - No signs of bleeding at this time (5) Lactic acidosis Code(s): E87.2 - ACIDOSIS SNOMED Code(s): 21612204 Comment: - Resolved (6) DVT prophylaxis Code(s): VPU2782 - SNOMED Code(s): 627945096 Comment: - Continue SQ heparin (7) DNR (do not resuscitate) Status and Disposition: OBV, possible discharge to home later today after a GI consult.
[2016-08-25] MEDS ORDERED: NS 0.9% 1000 ML* 1,000 ML IV SCH (12:00)
[2016-08-25 12:34] LABS: Magnesium 1.7 mg/dL (1.9-2.7)
[2016-08-25] MEDS ORDERED: Magnesium Sulfate 2 GM IV* 2 GM/50 ML BAG IVPB ONE (14:00)
[2016-08-25 16:05] VITALS: BP 142/78
--- NOTE | 2016-08-26 04:32 | DS ---
DISCHARGE SUMMARY: DATE OF ADMISSION: 08/24/16 DATE OF DISCHARGE: 08/25/16 AGE: 65. ATTENDING PHYSICIAN: Torie Ospina MD*(dictated by Elvia Collins NP) PRIMARY CARE PROVIDER: JOSE R Lizarraga. PRIMARY DIAGNOSES: 1. Dehydration. 2. Abdominal pain. 3. Lightheadedness secondary to dehydration. 4. Hypokalemia. 5. Hypomagnesium. 6. Anemia. 7. Possible terminal ileum mass. SECONDARY DIAGNOSES: 1. Question of alcoholism. 2. Osteoarthritis. 3. History of colonic polyps. CONSULTATION WHILE IN THE HOSPITAL: Phu Mcmillan MD, with Gastroenterology. STUDIES WHILE IN THE HOSPITAL: 1. Chest x-ray on 08/24/16. Radiologist impression: No active cardiopulmonary disease. 2. Abdomen and pelvis CT on 08/24/16. Radiologist impression: Marked hepatic stenosis, possible mass terminal ileum. Mild prosthetic enlargement, trabeculation of the bladder wall, fat-containing left femoral hernia. 3. Transthoracic echocardiogram from 08/25/16. Rubbish Collector conclusion: Mild concentric left ventricular hypertrophy is observed. There is increased basal septal hypertrophy noted without evidence of an increased gradient across the left ventricular outflow tract. The estimated ejection fraction is 50% to 55%, closer to 55%. There is a left ventricular septal wall motion abnormality observed, possibly due to the presence of a right bundle branch block. There is an E:A reversal in the mitral valve flow pattern suggestive of diastolic dysfunction. The right ventricle wall thickness is mildly increased. The aortic valve leaflets are mildly thickened. There is a moderate thickening of the left coronary cusp and the right coronary cusp. Systolic excursion of the right coronary cusp is reduced and the left coronary cusp is reduced. There is trace to mild mitral regurgitation, trace tricuspid regurgitation. DISCHARGE MEDICATIONS: No medications. HISTORY OF PRESENT ILLNESS/HOSPITAL COURSE: Mr. Tavarez is a 65-year-old male with past medical history significant for reported hypertension, but not currently on medications, who presented to the hospital with concerns of abdominal pain and episodes of passing out over the past 5 to 6 months. Mr. Tavarez reports ongoing mid and left quadrant abdominal pain as well as daily diarrhea for several months. The patient feels that it has been at least 5 to 6 months. He is also felt dizzy and lightheaded. The patient has also noted on multiple episodes of passing out when changing positions from sitting to standing. The patient reports loose and black stools. The patient suspects the blackness is secondary to Pepto-Bismol. He drinks approximately 1 bottle of Pepto-Bismol per week and states that this is helping with his GI trouble. The patient's daughter also reports significant weight loss, approximately 40 to 50 pounds, over the last year, for which he did seek medical care. I am not exactly clear what the workup entailed. The patient reports approximately a 20- pound weight loss over a year in addition to very poor appetite with daily intake consisting of a piece of toast for breakfast, a half a sandwich for lunch and no dinner. The patient reports not eating simply because his appetite is poor. He denies any nausea or vomiting. The patient drinks alcohol daily, reporting drinking "2 whiskeys a day." The patient is also a half a pack a day smoker. Based off of concern for the patient's continued symptoms, he presented to the emergency room for further evaluation. While in the emergency room, the patient had a chest x-ray showing no acute process. He had labs which were significant for a new anemia with a hemoglobin of 10.7. The patient had hypokalemia with a potassium of 2.6, lactic acid of 2.4, and hypomagnesium with a magnesium of 1.5. The patient also underwent CT of his abdomen showing a possible terminal ileum mass. Hospice were asked to evaluate the patient for admission due to his syncopal episodes and abdominal pain. While in the hospital, the patient continued to report diarrhea, but states that it had decreased slightly. The patient reports improvement of his abdominal pain. He was seen in consultation by Dr. Mcmillan with GI, who felt that the patient needed a colonoscopy, but this could be scheduled outpatient. The patient continued to have hypokalemia and hypomagnesium. He received replacement today. The patient appears to be anemic, although he had a negative stool guaiac. The patient's H and H appeared to be stable during his stay. He had no signs of bleeding. The patient's lactic acidosis resolved after IV hydration. I suspected that some of the patient's syncopal symptoms of dizziness were related to dehydration. The patient's electrolyte abnormalities are also suspected to be related to the patient's chronic diarrhea. The patient has been encouraged to stay hydrated. The patient is able to tolerate a regular diet and is anxious for discharge to home today. Mr. Tavarez had orthostatic vital signs showing no orthostasis this afternoon. Mr. Tavarez is stable for discharge to home. Vital signs are as follows: Temperature 98.4, heart rate 86, respiratory rate 18, O2 sat 100% on room air, blood pressure 142/78. DISCHARGE PLAN: Mr. Tavarez will be discharged to home. DIET: Regular diet. ACTIVITY: As tolerated. He has been encouraged to follow up with his primary care provider, Frances Field. Frances Field's office will call the patient with a followup appointment. The patient should also be seen in followup as an outpatient with Gastroenterology to be scheduled for a colonoscopy. In the past, the patient has seen Dr. Patel with [facility], who is no longer with [facility]. The patient would like to stay with the providers at [facility] in [place], and they will call the patient with an appointment. The patient has been asked to get his electrolytes checked on Monday prior to followup with his primary care provider. He has also been encouraged to stay hydrated. The patient has been asked to return to the emergency room for chest discomfort or shortness of breath. As far as the patient's anemia at this time, the patient has no active signs of bleeding. He had guaiac that was negative. As far as the possible terminal ileum mass, again the patient will need to have a colonoscopy. This is a summarized report of a complex medical history and hospital stay. For further details, please see the entire medical record. TIME SPENT: Time for this discharge was 50 minutes, 25 minutes was spent face-to- face with the patient discussing discharge plans and instructions. CONDITION ON DISCHARGE: Improved. Reviewed by KALLIE SANTACRUZ 08/31/16 1405 CC: JOSE R Lizarraga; [facility] * [id number]/[facility] #: [id number] ANT
--- NOTE | 2016-08-29 00:42 | CONS ---
CONSULTATION REPORT: DATE OF CONSULTATION: 08/25/16 REQUESTING PHYSICIAN: Allison Hurtado NP INDICATIONS: Terminal ileal mass. HISTORY OF PRESENT ILLNESS: Mr. Tavarez is a very pleasant 65-year-old gentleman , who has a history of hypertension. The patient came to the emergency room because he has been having frequent episodes of fainting. He has also been having abdominal pain. He has also been having diarrhea over the past few weeks. He did go see his primary care physician, who recommended he come to the emergency room. He tells me he has been having black stools; however, he does drink a fair amount of Pepto-Bismol. He has lost approximately 20 pounds. He states that the pain is there all the time. It does get worse and then better at times. Eating does not seem to make it any worse. He is having diarrhea. No constipation. His overall intake has definitely decreased. PAST MEDICAL HISTORY: Significant for history of diverticulosis and colonic polyps. He has osteoarthritis and potential alcoholism. MEDICATIONS: Prescribed medications, none. ALLERGIES: None. FAMILY HISTORY: Coronary artery disease and unknown type of cancer. SOCIAL HISTORY: He continues to smoke. He does drink alcohol. REVIEW OF SYSTEMS: 12 systems were reviewed and unless mentioned in the HPI were unremarkable. PHYSICAL EXAMINATION: On physical exam, temperature is 98.2, blood pressure 146 /90, pulse is 94. General: Elderly appearing male, appears older than stated age. Alert, oriented, pleasant, fluent. HEENT: Mucous membranes are moist without lesions, ulcers, or exudates. Neck is supple. Trachea is midline. Heart: Regular rate and rhythm. Lungs: Clear to auscultation. Abdomen: Positive bowel sounds, soft, nontender, nondistended. No hepatosplenomegaly, masses, rebound, or guarding. Skin: Warm and dry. LABORATORY DATA: Of note, his white count is 4.7, hemoglobin of 10.5, INR is 0.89. His BUN is 3, creatinine is 0.48. He also has a CT abdomen and pelvis, which shows marked hepatic steatosis, possible mass in the terminal ileum. ASSESSMENT AND PLAN: Mr. Tavarez is a pleasant 65-year-old gentleman, who may have a terminal ileal mass. At this point, his pain and his diarrhea he states are much better. He did have a colonoscopy at least according to his primary care physician 8 years ago; however, the patient tells me it was much more recent than that. He tells me that they have been to Dr. Patel. He does mention that he likes Dr. Patel and would like to follow up with him if he needs any further colonoscopy. I did recommend that we should pursue another colonoscopy and try to intubate his terminal ileum to evaluate for this mass. He states that he would like to go home today and have this followed up as an outpatient. He again would like to follow up with Dr. Patel for his colonoscopy. CC: [facility] Sauced[facility] * [id number]/[facility] #: [id number] ANT
== END 2016-08-25 17:50 | disposition home or self-care (01) ==
LOC: ED 10:30 → MEDTELE 14:33
PROVIDERS: ADMIT Internal Medicine; ATTEND Hospitalist
DX: E86.0 Dehydration (principal); R10.9 Unspecified abdominal pain; R54 Age-related physical debility; E87.6 Hypokalemia; E83.42 Hypomagnesemia; D64.9 Anemia, unspecified; M19.90 Unspecified osteoarthritis, unspecified site; R55 Syncope and collapse; E87.8 Other disorders of electrolyte and fluid balance, not elsewhere classified; E87.2 Acidosis; R94.31 Abnormal electrocardiogram [ECG] [EKG]; F17.210 Nicotine dependence, cigarettes, uncomplicated; Z86.010 Personal history of colon polyps; I51.7 Cardiomegaly
CPT/HCPCS: 36415; 71010; 74177; 80048; 80053; 81003; 82272; 82550; 82553; 83605; 83690; 83735; 83880; 84443; 84484; 85025; 85610; 85730; 86140; 86850; 86900; 86901; 93005; 93306; 96365; 96366; 96367; 96375; 99284; 99406; A9270-GY; G0378; G8978-GP-CI; G8979-GP-CI; G8980-GP-CI; J1644; J3475; J3480; Q9967

== ENCOUNTER 2016-10-14 13:15 | Emergency (ER) | payer BC, MEDICARE ==
[2016-10-14 14:59] LABS: Hematocrit 40 % (42-52); Hemoglobin 13.8 g/dl (14.0-18.0); Mean Corpuscular HGB Conc 34 g/dl (31-36); Mean Corpuscular Hemoglobin 36 pg (27-31); Mean Corpuscular Volume 105 fL (80-94); Mean Platelet Volume 7 um3 (7.4-10.4); Red Blood Count 3.85 10^6/ul (4.0-5.4); Red Cell Distribution Width 15 % (10.5-15); White Blood Count 6.2 10^3/ul (3.5-10.8)
[2016-10-14 15:18] LABS: Albumin 4.1 g/dL (3.2-5.2); Calcium 9.5 mg/dL (8.6-10.3); EGFR African American 195.8 (>60); EGFR Non-African American 152.2 (>60); Globulin 2.7 g/dL (2-4); Potassium 2.9 mmol/L (3.5-5.0); Total Bilirubin 0.4 mg/dL (0.2-1.0); Total Protein 6.8 g/dL (6.4-8.9)
[2016-10-14] MEDS ORDERED: Potassium Chlor TAB* 20 MEQ TAB.ER PO ONE (16:53)
[2016-10-14 17:35] VITALS: BP 159/100
--- NOTE | 2016-10-27 17:38 | ED ---
Andrae Aabd Adam, scribed for Vaughn Greer MD on 10/14/16 at 1637 . Complex/Multi-Sys Presentation - HPI Summary HPI Summary: Pt is a 65 year old male sent by [facility] with hypokalemia. He had blood work done at [facility] because on 11/09 he is having surgery for a mass in his stomach. After the blood work came back, the pt was called and told to come to the ED because of low potassium levels. Pt states that he feels ok right now. However, he states that he has chronic diarrhea for which he takes Immodium daily (goes through approximately 1 bottle per week). He is supposed to be taking potassium regularly but he does not like to because he believes that it contributes to his diarrhea. He also states that for the past few months he has been getting dizzy when he stands up quickly. He denies any CP or SOB. His diet has been normal but his states that he has not been drinking enough water. He drinks whiskey every day (up to 10 shots). - History Of Current Complaint Chief Complaint: EDGeneral Time Seen by Provider: 10/14/16 16:17 Hx Obtained From: Patient Onset/Duration: Gradual Onset, Lasting Hours Severity Currently: None Aggravating Factor(s): Not taking potassium pills Alleviating Factor(s): Immodium Associated Signs And Symptoms: Positive: Dizziness - When he stands up too quickly, Diarrhea - Allergies/Home Medications Allergies/Adverse Reactions: Allergies Allergy/AdvReac Type Severity Reaction Status Date / Time No Known Allergies Allergy Verified 04/07/16 18:49 PMH/Surg Hx/FS Hx/Imm Hx Endocrine/Hematology History: Reports: Hx Anemia Cardiovascular History: Denies: Hx Hypercholesterolemia, Hx Hypertension GI History: Reports: Hx Gastroesophageal Reflux Disease, Other GI Disorders - hernia in his 20's Sensory History: Reports: Hx Contacts or Glasses Opthamlomology History: Reports: Hx Contacts or Glasses Neurological History: Reports: Other Neuro Impairments/Disorders - syncope Infectious Disease History: No Infectious Disease History: Denies: Traveled Outside the [place] in Last 30 Days - Family History Known Family History: Positive: Cardiac Disease, Other - Cancer - Social History Alcohol Use: Daily Alcohol Amount: 3 drinks of hard liquor Hx Substance Use: No Substance Use Type: Reports: None Hx Tobacco Use: Yes Smoking Status (MU): Heavy Every Day Tobacco Smoker Review of Systems Negative: Fever, Chills Negative: Erythema Negative: Sore Throat Negative: Chest Pain Negative: Shortness Of Breath, Cough Positive: Diarrhea. Negative: Abdominal Pain, Vomiting, Nausea Negative: dysuria, hematuria Negative: Myalgia, Edema Negative: Rash Neurological: Other - Dizziness when he stands up too quickly All Other Systems Reviewed And Are Negative: Yes Physical Exam - Summary Physical Exam Summary: Constitutional: Well-developed, Well-nourished, Alert. (-) Distressed Skin: Warm, Dry HENT: Normocephalic; Atraumatic Eyes: Conjunctiva normal Neck: Musculoskeletal ROM normal neck. (-) JVD, (-) Stridor, (-) Tracheal deviation Cardio: Rhythm regular, rate normal, Heart sounds normal; Intact distal pulses; The pedal pulses are 2+ and symmetric. Radial pulses are 2+ and symmetric. (-) Murmur Pulmonary/Chest wall: Effort normal. (-) Respiratory distress, (-) Wheezes, (-) Rales Abd: Soft, (-) Tenderness, (-) Distension, (-) Guarding, (-) Rebound Musculoskeletal: (-) Edema Lymph: (-) Cervical adenopathy Neuro: Alert, Oriented x3 Psych: Mood and affect Normal Triage Information Reviewed: Yes Vital Signs On Initial Exam: Initial Vitals Temp Pulse Resp BP Pulse Ox 96.8 F 104 20 122/76 98 10/14/16 13:24 10/14/16 13:24 10/14/16 13:24 10/14/16 13:24 10/14/16 13:24 Vital Signs Reviewed: Yes - Rachelle Coma Scale Coma Scale Total: 15 Diagnostics - Vital Signs Vital Signs Temp Pulse Resp BP Pulse Ox 10/14/16 16:31 91 10/14/16 16:23 98 F 88 20 156/84 98 10/14/16 15:52 98.0 F 93 18 134/82 98 10/14/16 14:27 98.6 F 88 17 120/72 97 10/14/16 13:24 96.8 F 104 20 122/76 98 - Laboratory Lab Results: Lab Results 10/14/16 10/14/16 10/14/16 Range/Units 14:46 14:46 14:46 WBC 6.2 (3.5-10.8) 10^3/ul RBC 3.85 L (4.0-5.4) 10^6/ul Hgb 13.8 L (14.0-18.0) g/dl Hct 40 L (42-52) % MCV 105 H (80-94) fL MCH 36 H (27-31) pg MCHC 34 (31-36) g/dl RDW 15 (10.5-15) % Plt Count 263 (150-450) 10^3/ul MPV 7 L (7.4-10.4) um3 Neut % (Auto) 53.9 (38-83) % Lymph % (Auto) 32.8 (25-47) % [place] % (Auto) 10.1 H (1-9) % Eos % (Auto) 2.0 (0-6) % Baso % (Auto) 1.2 (0-2) % Absolute Neuts (auto) 3.3 (1.5-7.7) 10^3/ul Absolute Lymphs (auto) 2.0 (1.0-4.8) 10^3/ul Absolute Monos (auto) 0.6 (0-0.8) 10^3/ul Absolute Eos (auto) 0.1 (0-0.6) 10^3/ul Absolute Basos (auto) 0.1 (0-0.2) 10^3/ul Absolute Nucleated RBC 0 10^3/ul Nucleated RBC % 0 Sodium 137 (133-145) mmol/L Potassium 2.9 L (3.5-5.0) mmol/L Chloride 100 L (101-111) mmol/L Carbon Dioxide 27 (22-32) mmol/L Anion Gap 10 (2-11) mmol/L BUN 7 (6-24) mg/dL Creatinine 0.54 L (0.67-1.17) mg/dL Est GFR ( Amer) 195.8 (>60) Est GFR (Non-Af Amer) 152.2 (>60) BUN/Creatinine Ratio 13.0 (8-20) Glucose 94 (70-100) mg/dL Lactic Acid 1.7 (0.5-2.0) mmol/L Calcium 9.5 (8.6-10.3) mg/dL Total Bilirubin 0.40 (0.2-1.0) mg/dL AST 40 H (13-39) U/L ALT 33 (7-52) U/L Alkaline Phosphatase 63 (34-104) U/L Troponin I 0.00 (<0.04) ng/mL Total Protein 6.8 (6.4-8.9) g/dL Albumin 4.1 (3.2-5.2) g/dL Globulin 2.7 (2-4) g/dL Albumin/Globulin Ratio 1.5 (1-3) Result Diagrams: 10/14/16 14:46 10/14/16 14:46 Lab Statement: Any lab studies that have been ordered have been reviewed, and results considered in the medical decision making process. - EKG 16:33 Cardiac Rate: NL - 89 BPM EKG Rhythm: Sinus Rhythm ST Segment: Normal EKG Interpretation: No STEMI - Additional Comments Diagnostic Additional Comments: Troponin I - 0.00 Complex Multi-Symp Course/Dx Course Of Treatment: We elected to not give IV potassium b/c the pt is tolerating oral. - Diagnoses Provider Diagnoses: Medication noncompliance, Diarrhea, Hypokalemia Discharge - Discharge Plan Condition: Stable Disposition: HOME Patient Education Materials: Acute Diarrhea (ED), Hypokalemia (ED) Referrals: No Primary Care Phys,NOPCP [Primary Care Provider] - Additional Instructions: Follow up with your Primary Care Physician. Double up on Immodium and try to eat unripe bananas and avocados. The documentation as recorded by the Andrae dobbs Adam accurately reflects the service I personally performed and the decisions made by me, Vaughn Greer MD.
== END 2016-10-14 17:34 | disposition home or self-care (01) ==
LOC: ED 13:15
DX: R42 Dizziness and giddiness (principal); E87.6 Hypokalemia; R19.7 Diarrhea, unspecified; F17.210 Nicotine dependence, cigarettes, uncomplicated; Z91.14 Patient's other noncompliance with medication regimen
CPT/HCPCS: 36415; 80053; 83605; 84484; 85025; 93005; 99283; A9270-GY

== ENCOUNTER 2017-11-02 19:04 | Emergency (ER) | payer BC, MEDICARE ==
[2017-11-02] MEDS ORDERED: NS 0.9% 1000 ML* 1,000 ML IV ONE (19:40)
[2017-11-02 20:18] LABS: INR 0.82 (0.77-1.02)
[2017-11-02 20:23] LABS: EGFR Non-African American 134.4 (>60)
[2017-11-02] MEDS ORDERED: Multivitamins/Minerals TAB PO ONE (20:41)
[2017-11-02] MEDS ORDERED: Thiamine IV* 100 MG/ML 2 ML VIAL IV ONE (20:41)
--- NOTE | 2017-11-02 20:42 | RAD ---
Indication: Syncope. 3 views of left hip and an AP view of the pelvis demonstrates no fracture. Pelvic ring is intact. Hip joint is intact. IMPRESSION: No fracture of the hips or pelvis is noted.
[2017-11-02 20:47] LABS: Hematocrit 38 % (42-52); Hemoglobin 12.6 g/dl (14.0-18.0); Mean Corpuscular HGB Conc 34 g/dl (31-36); Mean Corpuscular Hemoglobin 37 pg (27-31); Mean Corpuscular Volume 109 fL (80-94); Mean Platelet Volume 7.5 um3 (7.4-10.4); Platelet Count 211 10^3/ul (150-450); Red Blood Count 3.46 10^6/ul (4.0-5.4); Red Cell Distribution Width 14 % (10.5-15); White Blood Count 4.4 10^3/ul (3.5-10.8)
[2017-11-02 21:16] LABS: ABS Basophils 0.1 10^3/ul (0-0.2); ABS Eosinophils 0 10^3/ul (0-0.6); ABS Lymphocytes 1.4 10^3/ul (1.0-4.8); ABS Monocytes 0.4 10^3/ul (0-0.8); ABS Neutrophils 2.5 10^3/ul (1.5-7.7); ABS Nucleated RBC 0 10^3/ul; Eosinophil % 0.7 % (0-6); Lymphocyte % 31.2 % (25-47); Nucleated Red Blood Cells % 0.1
[2017-11-02 21:20] VITALS: BP 138/85
--- NOTE | 2017-11-02 22:14 | RAD ---
Indication: Syncope. 2 views of the chest including dual energy PA views demonstrates no mediastinal shift. Heart is of normal size and configuration. Lung león appear hyperinflated. No evidence of alveolar consolidation is noted. When compared to previous exam of August 24, 2016 no significant change is noted. IMPRESSION: Hyperinflated lung león without evidence of active cardiopulmonary disease.
--- NOTE | 2017-11-03 04:15 | ED ---
Mukund Abad Angela, scribed for Bull Duron MD on 11/02/17 at 1935 . Adult Trauma - HPI Summary HPI Summary: This pt is a 66 y/o male presenting to [facility] via EMS c/o fall today. Pt reports he went to sit out on the porch when he suddenly felt palpitations and dizziness and subsequently fell. He notes he had LOC. He states he was able to get up after his fall with some help from the neighbor. Per , pt has not been eating well lately. This morning pt states he had a hard time getting out of bed. Pt admits to drinking alcohol daily and being a heavy daily smoker. He notes he drinks 3-4 drinks of whisky every day. Pt has hx of chronic cough, unchanged recently. Today pt c/o left hip pain, right elbow abrasions. He states he took his antihypertensive medications today. Pt reports he usually ambulates with a cane or walker. PMHx includes HTN, hernia. 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 Per daughter, pt had a fall 1-2 years ago and his tetanus shot was updated then. - History of Current Complaint Stated Complaint: FALL Time Seen by Provider: 11/02/17 19:23 Hx Obtained From: Patient Mechanism of Injury: Fall Ambulatory at the Scene: Yes - with help Loss of Consciousness: brief (seconds) Onset/Duration: Started Minutes Ago, Traumatic, Still Present Onset of Pain: Immediate Current Severity: Moderate Pain Intensity: 4 Pain Scale Used: 0-10 Numeric Location: Extremities - right elbow, Other - left hip Aggravating Factor(s): Nothing Alleviating Factor(s): Nothing Associated Signs & Symptoms: Positive: Loss of Consciousness, Ecchymosis, Other : - POS: palpitations. Negative: SOB, Chest Pain - Additional Pertinent History Primary Care Physician: [id number] - Allergy/Home Medications Allergies/Adverse Reactions: Allergies Allergy/AdvReac Type Severity Reaction Status Date / Time No Known Allergies Allergy Verified 04/07/16 18:49 Home Medications: Home Medications Metoprolol Succinate XL TAB* [Toprol XL TAB*] 25 mg PO DAILY 11/02/17 [History Confirmed 11/02/17] Multivitamins/Minerals TAB* [Theragran/minerals TAB*] 1 tab PO DAILY 11/02/17 [ History Confirmed 11/02/17] Potassium Chlor TAB* [Klor Con ER TAB*] 20 meq PO DAILY 11/02/17 [History Confirmed 11/02/17] PMH/Surg Hx/FS Hx/Imm Hx Endocrine/Hematology History: Reports: Hx Anemia Denies: Hx Diabetes Cardiovascular History: Denies: Hx Hypercholesterolemia, Hx Hypertension GI History: Reports: Hx Gastroesophageal Reflux Disease, Other GI Disorders - hernia in his 20's History: Denies: Hx Renal Disease Sensory History: Reports: Hx Contacts or Glasses Opthamlomology History: Reports: Hx Contacts or Glasses Neurological History: Reports: Other Neuro Impairments/Disorders - syncope - Surgical History Surgery Procedure, Year, and Place: MASS REMOVED FROM LOWER COLON 11/2016 Infectious Disease History: No Infectious Disease History: Denies: Traveled Outside the [place] in Last 30 Days - Family History Known Family History: Positive: Cardiac Disease, Other - Cancer - Social History Alcohol Use: Daily Alcohol Amount: 3 drinks of hard liquor Hx Substance Use: No Substance Use Type: Reports: None Hx Tobacco Use: Yes Smoking Status (MU): Heavy Every Day Tobacco Smoker Review of Systems Negative: Fever Positive: Palpitations. Negative: Chest Pain Positive: Cough Musculoskeletal: Other - left hip pain Skin: Other - abrasions Neurological: Other - POS: dizzy Positive: Syncope All Other Systems Reviewed And Are Negative: Yes Physical Exam - Summary Physical Exam Summary: Appearance: Well appearing, no pain distress Skin: warm, dry, reflects adequate perfusion. Skin is thin and fragile in upper extremities with multiple various age ecchymosis. Head/face: normal Eyes: EOMI, BLAIR ENT: normal. MMM. Neck: supple, non-tender Respiratory: Grossly diminished breath sounds bilaterally. No wheezing. Cardiovascular: RRR, pulses symmetrical. Faint pulses. Abdomen: non-tender, soft. Periumbilical cervical scar with ventral hernia. Bowel: present Musculoskeletal: normal, strength/ROM intact. RUE: abrasion and minor skin tear on right elbow. RLE: Abrasion and contusion on outside right knee just below the lateral portion of the right knee. Neuro: normal, sensory motor intact, A&Ox3 Triage Information Reviewed: Yes Vital Signs On Initial Exam: Initial Vitals Temp Pulse Resp BP Pulse Ox 98.7 F 92 17 117/92 95 11/02/17 19:28 11/02/17 19:28 11/02/17 19:28 11/02/17 19:28 11/02/17 19:28 Vital Signs Reviewed: Yes Diagnostics - Vital Signs Vital Signs Temp Pulse Resp BP Pulse Ox 11/02/17 19:28 98.7 F 92 17 117/92 95 - Laboratory Lab Results: Lab Results 11/02/17 11/02/17 11/02/17 Range/Units 19:54 19:54 19:54 WBC 4.4 (3.5-10.8) 10^3/ul RBC 3.46 L (4.0-5.4) 10^6/ul Hgb 12.6 L (14.0-18.0) g/dl Hct 38 L (42-52) % MCV 109 H (80-94) fL MCH 37 H (27-31) pg MCHC 34 (31-36) g/dl RDW 14 (10.5-15) % Plt Count 211 (150-450) 10^3/ul MPV 7.5 (7.4-10.4) um3 Neut % (Auto) 57.8 (38-83) % Lymph % (Auto) 31.2 (25-47) % [place] % (Auto) 9.0 H (0-7) % Eos % (Auto) 0.7 (0-6) % Baso % (Auto) 1.3 (0-2) % Absolute Neuts (auto) 2.5 (1.5-7.7) 10^3/ul Absolute Lymphs (auto) 1.4 (1.0-4.8) 10^3/ul Absolute Monos (auto) 0.4 (0-0.8) 10^3/ul Absolute Eos (auto) 0 (0-0.6) 10^3/ul Absolute Basos (auto) 0.1 (0-0.2) 10^3/ul Absolute Nucleated RBC 0 10^3/ul Nucleated RBC % 0.1 INR (Anticoag Therapy) 0.82 (0.77-1.02) APTT 27.6 (26.0-36.3) seconds Sodium 138 L (139-145) mmol/L Potassium 4.3 (3.5-5.0) mmol/L Chloride 100 L (101-111) mmol/L Carbon Dioxide 20 L (22-32) mmol/L Anion Gap 18 H (2-11) mmol/L BUN 9 (6-24) mg/dL Creatinine 0.60 L (0.67-1.17) mg/dL Est GFR ( Amer) 172.8 (>60) Est GFR (Non-Af Amer) 134.4 (>60) BUN/Creatinine Ratio 15.0 (8-20) Glucose 127 H (70-100) mg/dL Calcium 8.2 L (8.6-10.3) mg/dL Total Bilirubin 0.50 (0.2-1.0) mg/dL GGT 269 H (9-64.0) U/L AST 64 H (13-39) U/L ALT 80 H (7-52) U/L Alkaline Phosphatase 70 (34-104) U/L Troponin I 0.00 (<0.04) ng/mL Total Protein 5.8 L (6.4-8.9) g/dL Albumin 3.3 (3.2-5.2) g/dL Globulin 2.5 (2-4) g/dL Albumin/Globulin Ratio 1.3 (1-3) Serum Alcohol 261 H (<10) mg/dL Result Diagrams: 11/02/17 19:54 11/02/17 19:54 Lab Statement: Any lab studies that have been ordered have been reviewed, and results considered in the medical decision making process. - Radiology Chest XR Xray Interpretation: No Acute Changes Radiology Interpretation Completed By: ED Physician - negative chest XR, Radiologist Left hip and pelvis XR Xray Interpretation: No Acute Changes - IMPRESSION: No fracture of the hips or pelvis is noted. Dr. Duron has reviewed this radiology report. Radiology Interpretation Completed By: Radiologist - EKG 19:49 Cardiac Rate: NL - at 85 bpm EKG Rhythm: Sinus Rhythm ST Segment: Non-Specific EKG Interpretation: Left axis. LBBB. Re-Evaluation - Re-Evaluation First Eval Re-Evaluation Time: 21:13 Change: Improved Comment: I reviewed lab and XR results with the pt. Pt does not want a head CT. His color has improved and he is feeling much better. Adult Trauma Course/Dx - Course Course Of Treatment: Patient presents for failure to thrive and possible syncopal episode today. He was found to have a blood alcohol almost 3-1/2 times the legal limit. He is admittedly a heavy drinker. His face has plethora with purple discoloration of his nose. Family states he is not eating much anymore. His laboratories are in accordance with this history. I had conversation with the patient and suggested that he at least take multivitamin or a boost/ensure supplement each day. He expresses no desire to quit drinking. He appears much older than stated age. He did refuse a head CT which was ordered given his fall and syncope. He is instructed to follow closely his primary care physician. - Diagnoses Differential Diagnosis/HQI/PQRI: Positive: Contusion(s), Fracture, Hematoma(s), Laceration(s), Other - Failure to thrive, alcoholism, intracranial hemorrhage, alcoholic ketoacidosis Provider Diagnoses: Alcohol intoxication, Syncope, Alcoholism, Malnutrition Discharge - Sign-Out/Discharge Documenting (check all that apply): Discharge/Admit/Transfer - discharge - Discharge Plan Condition: Improved Disposition: HOME Patient Education Materials: Syncope (ED), Alcohol Dependence (ED) Referrals: Chayo Milton MD [Primary Care Provider] - Additional Instructions: A handout for local resources regarding alcohol rehabilitation have been provided to you. Make sure that you eat every day. Cut back under drinking. Take a multivitamin with finding every day. Return with headaches, confusion, repetitive vomiting, new symptoms or other concerns as discussed. - Billing Disposition and Condition Condition: IMPROVED Disposition: HOME The documentation as recorded by the Mukund dobbs Angela accurately reflects the service I personally performed and the decisions made by me, Bull Duron MD.
== END 2017-11-02 21:34 | disposition home or self-care (01) ==
LOC: ED 19:04
DX: F10.229 Alcohol dependence with intoxication, unspecified (principal); R00.2 Palpitations; F17.210 Nicotine dependence, cigarettes, uncomplicated; R55 Syncope and collapse; Y90.8 Blood alcohol level of 240 mg/100 ml or more; E46 Unspecified protein-calorie malnutrition
CPT/HCPCS: 36415; 71046; 80053; 80320; 82977; 84484; 85025; 85610; 85730; 93005; 96361; 96374; 99283; A9270-GY; G0480; J3411

== ENCOUNTER 2020-08-06 07:36 | Inpatient (IN) ==
[2020-08-06] MEDS ORDERED: NS 0.9% 1000 ml BAG 1,000 ML IV ONE ×2 (08:00→09:21)
[2020-08-06 08:59] LABS: ABS Lymphocytes 0.9 10^3/ul (1.0-4.8); ABS Monocytes 0.5 10^3/ul (0-0.8); ABS Neutrophils 6.1 10^3/ul (1.5-7.7); Eosinophil % 0.1 %; Hematocrit 32 % (42-52); Hemoglobin 11.4 g/dL (14.0-18.0); Lymphocyte % 12.3 %; Mean Corpuscular HGB Conc 36 g/dL (31-36); Mean Corpuscular Hemoglobin 42 pg (27-31); Mean Corpuscular Volume 116 fL (80-94); Mean Platelet Volume 7.4 fL (7.4-10.4); Nucleated Red Blood Cells % 0.1; Platelet Count 283 10^3/uL (150-450); Red Blood Count 2.72 10^6 /uL (4.18-5.48); Red Cell Distribution Width 15 % (10-15); White Blood Count 7.6 10^3/uL (3.5-10.8)
[2020-08-06 09:10] LABS: ALT 29 U/L (7-52); Albumin 3.2 g/dL (3.2-5.2); Albumin/Globulin Ratio 1.2 (1-3); Alkaline Phosphatase 53 U/L (34-104); BUN/Creatinine Ratio 43.5 (8-20); Blood Urea Nitrogen 30 mg/dL (6-24); CO2 Carbon Dioxide 24 mmol/L (22-32); Calcium 7.6 mg/dL (8.6-10.3); Chloride 100 mmol/L (101-111); Creatine Kinase 1429 U/L (10-223); EGFR African American 137.2 (>60); EGFR Non-African American 113.4 (>60); Globulin 2.6 g/dL (2-4); Glucose 71 mg/dL (70-100); Sodium 140 mmol/L (135-145); Total Protein 5.8 g/dL (6.4-8.9)
[2020-08-06 09:13] LABS: Anion Gap 16 mmol/L (2-11); Magnesium 0.8 mg/dL (1.9-2.7)
[2020-08-06 09:15] LABS: Troponin I 0.04 ng/mL (<0.03)
[2020-08-06] MEDS ORDERED: Magnesium Sulf 4 GM/100 ML IV 4,000 MG/100 ML BAG IVPB ONE (09:21)
[2020-08-06 10:02] LABS: Alcohol, S < 10 mg/dL (<10)
[2020-08-06 10:16] LABS: TSH Ultra Thyroid Stim Horm 0.58 mcIU/mL (0.34-5.60)
[2020-08-06] MEDS ORDERED: Thiamine 100 MG/ML 2 ml VIAL (200 mg) IM ONE (10:39)
[2020-08-06 11:35] LABS: Potassium Redraw 2.6 mmol/L (3.5-5.0)
[2020-08-06] MEDS ORDERED: Potassium Chlor 20 meq TAB.ER PO ONE ×2 (11:38→19:17)
[2020-08-06] MEDS ORDERED: KCL 20 MEQ/100 ML IVPREMIX 20 MEQ/100 ML BAG IV SCH (12:00)
[2020-08-06 14:40] LABS: Blood Urea Nitrogen 28 mg/dL (6-24); EGFR African American 149.6 (>60); EGFR Non-African American 123.6 (>60); Magnesium 2.4 mg/dL (1.9-2.7)
[2020-08-06 14:43] LABS: Potassium 2.6 mmol/L (3.5-5.0); Troponin I 0.05 ng/mL (<0.03)
[2020-08-06] MEDS: NS 0.9% w/ 20 Meq KCL 1000 ml 1,000 ML IV SCH (15:13)
[2020-08-06] MEDS: Multivitamins/Minerals TAB PO SCH (16:06)
[2020-08-06] MEDS: Potassium Chlor 20 meq TAB.ER PO SCH ×2 (16:07→21:54)
[2020-08-06] MEDS: KCL 20 MEQ/100 ML IVPREMIX 20 MEQ/100 ML BAG IV SCH ×2 (16:09→21:59)
[2020-08-06 16:29] LABS: Vitamin B12 108 pg/mL (180-914)
[2020-08-06 19:10] LABS: Potassium 2.7 mmol/L (3.5-5.0)
[2020-08-06 19:11] LABS: Troponin I 0.04 ng/mL (<0.03)
[2020-08-06] MEDS: Heparin 5000 UNITS/ML 1 mL VIAL SUBCUT SCH (21:55)
[2020-08-07 02:34] LABS: ABS Lymphocytes 1.2 10^3/ul (1.0-4.8); ABS Monocytes 0.2 10^3/ul (0-0.8); ABS Neutrophils 3.2 10^3/ul (1.5-7.7); Hematocrit 28 % (42-52); Hemoglobin 9.7 g/dL (14.0-18.0); Lymphocyte % 24.5 %; Mean Corpuscular HGB Conc 35 g/dL (31-36); Mean Corpuscular Hemoglobin 41 pg (27-31); Mean Corpuscular Volume 118 fL (80-94); Mean Platelet Volume 7.1 fL (7.4-10.4); Nucleated Red Blood Cells % 0.1; Platelet Count 256 10^3/uL (150-450); Red Blood Count 2.35 10^6 /uL (4.18-5.48); Red Cell Distribution Width 15 % (10-15); White Blood Count 4.7 10^3/uL (3.5-10.8)
[2020-08-07 02:43] LABS: BUN/Creatinine Ratio 38.2 (8-20); Calcium 7.4 mg/dL (8.6-10.3); EGFR African American 139.5 (>60); EGFR Non-African American 115.3 (>60); Potassium 3.1 mmol/L (3.5-5.0)
[2020-08-07] MEDS: KCL 20 MEQ/100 ML IVPREMIX 20 MEQ/100 ML BAG IV SCH ×3 (02:56→16:47)
[2020-08-07] MEDS: NS 0.9% w/ 20 Meq KCL 1000 ml 1,000 ML IV SCH (04:23)
[2020-08-07 06:53] LABS: BUN/Creatinine Ratio 38.7 (8-20); Calcium 7.4 mg/dL (8.6-10.3); EGFR African American 155.2 (>60); EGFR Non-African American 128.3 (>60); Magnesium 1.9 mg/dL (1.9-2.7); Potassium 3.3 mmol/L (3.5-5.0)
[2020-08-07] MEDS: Multivitamins/Minerals TAB PO SCH (08:40)
[2020-08-07] MEDS: Potassium Chlor 20 meq TAB.ER PO SCH ×2 (08:40→21:53)
[2020-08-07] MEDS: Heparin 5000 UNITS/ML 1 mL VIAL SUBCUT SCH ×2 (08:47→21:53)
[2020-08-07 11:58] LABS: Hematocrit 29 % (42-52)
[2020-08-07 12:39] LABS: CO2 Carbon Dioxide 19 mmol/L (22-32); Calcium 7.5 mg/dL (8.6-10.3); Chloride 109 mmol/L (101-111); Sodium 142 mmol/L (135-145)
[2020-08-07 12:45] LABS: BUN/Creatinine Ratio 41.5 (8-20); Blood Urea Nitrogen 22 mg/dL (6-24); EGFR Non-African American 153.7 (>60); Glucose 79 mg/dL (70-100)
[2020-08-07 12:59] LABS: Anion Gap 14 mmol/L (2-11)
[2020-08-07] MEDS ORDERED: Perflutren Lipid Microsphere 3 ML VIAL ONE (13:15)
[2020-08-07 13:20] LABS: ABS Lymphocytes 1.1 10^3/ul (1.0-4.8); ABS Monocytes 0.3 10^3/ul (0-0.8); ABS Neutrophils 3.1 10^3/ul (1.5-7.7); Eosinophil % 0.9 %; Lymphocyte % 24.2 %; Mean Corpuscular HGB Conc 35 g/dL (31-36); Mean Corpuscular Hemoglobin 42 pg (27-31); Mean Corpuscular Volume 121 fL (80-94); Mean Platelet Volume 7.5 fL (7.4-10.4); Nucleated Red Blood Cells % 0.3; Platelet Count 277 10^3/uL (150-450); Red Blood Count 2.43 10^6 /uL (4.18-5.48); Red Cell Distribution Width 15 % (10-15); White Blood Count 4.6 10^3/uL (3.5-10.8)
[2020-08-07 16:19] LABS: Potassium 3.5 mmol/L (3.5-5.0)
[2020-08-07] MEDS ORDERED: Nicotine GUM 4MG FRUIT FLAVOR PO PRN (17:29)
[2020-08-07] MEDS: Lactated Ringers 1000 ml BAG 1,000 ML IV SCH (17:41)
[2020-08-07] MEDS: Nicotine PATCH 21 MG/24 HR PATCH TRANSDERM SCH (17:41)
[2020-08-07 19:42] LABS: Calcium 7.8 mg/dL (8.6-10.3)
[2020-08-07 19:47] LABS: BUN/Creatinine Ratio 36.8 (8-20); EGFR Non-African American 141.3 (>60)
[2020-08-08 05:19] LABS: BUN/Creatinine Ratio 33.3 (8-20); C Reactive Protein 78.02 mg/L (<8.01); Calcium 7.9 mg/dL (8.6-10.3); EGFR African American 208.5 (>60); EGFR Non-African American 172.3 (>60); Potassium 3.1 mmol/L (3.5-5.0)
[2020-08-08 05:27] LABS: ABS Lymphocytes 1.1 10^3/ul (1.0-4.8); ABS Monocytes 0.4 10^3/ul (0-0.8); ABS Neutrophils 1.9 10^3/ul (1.5-7.7); Eosinophil % 1.4 %; Hematocrit 30 % (42-52); Hemoglobin 10.4 g/dL (14.0-18.0); Lymphocyte % 32.7 %; Mean Corpuscular HGB Conc 35 g/dL (31-36); Mean Corpuscular Hemoglobin 42 pg (27-31); Mean Corpuscular Volume 119 fL (80-94); Mean Platelet Volume 7.1 fL (7.4-10.4); Nucleated Red Blood Cells % 0.1; Platelet Count 292 10^3/uL (150-450); Red Blood Count 2.51 10^6 /uL (4.18-5.48); Red Cell Distribution Width 15 % (10-15); White Blood Count 3.5 10^3/uL (3.5-10.8)
[2020-08-08] MEDS: Potassium Chlor 20 meq TAB.ER PO SCH ×4 (07:43→20:06)
[2020-08-08] MEDS: Heparin 5000 UNITS/ML 1 mL VIAL SUBCUT SCH ×2 (07:43→20:07)
[2020-08-08] MEDS: Multivitamins/Minerals TAB PO SCH (07:43)
[2020-08-08] MEDS: Nicotine PATCH 21 MG/24 HR PATCH TRANSDERM SCH (07:43)
[2020-08-08] MEDS ORDERED: CALCIUM GLUCONATE 1GM/50ML NS 1 GM/50 ML BAG IV ONE (10:46)
[2020-08-08 11:15] LABS: Magnesium 1.5 mg/dL (1.9-2.7)
[2020-08-08] MEDS ORDERED: Magnesium Sulf 4 GM/100 ML IV 4,000 MG/100 ML BAG IVPB ONE (11:55)
[2020-08-08 12:31] LABS: C Reactive Protein 118.86 mg/L (<8.01)
[2020-08-08] MEDS ORDERED: KCL 20 MEQ/100 ML IVPREMIX 20 MEQ/100 ML BAG IV ONE ×2 (15:17→17:56)
[2020-08-08] MEDS ORDERED: KCL 20 MEQ/100 ML IVPREMIX 20 MEQ/100 ML BAG ONE (16:48)
[2020-08-08 17:44] LABS: BUN/Creatinine Ratio 24.5 (8-20); Calcium 8.6 mg/dL (8.6-10.3); EGFR African American 203.6 (>60); EGFR Non-African American 168.3 (>60); Magnesium 2.7 mg/dL (1.9-2.7); Potassium 3.3 mmol/L (3.5-5.0)
[2020-08-08] MEDS: Lactated Ringers 1000 ml BAG 1,000 ML IV SCH (17:58)
[2020-08-09] MEDS ORDERED: Diltiazem IV push/loading dose 5 MG/ML 5 ML vial (25 mg) IV SLOW PU ONE (01:23)
[2020-08-09 02:07] LABS: BUN/Creatinine Ratio 18.4 (8-20); Calcium 8.4 mg/dL (8.6-10.3); EGFR African American 203.6 (>60); EGFR Non-African American 168.3 (>60); Magnesium 1.9 mg/dL (1.9-2.7); Potassium 3.5 mmol/L (3.5-5.0)
[2020-08-09 02:09] LABS: Troponin I 0.01 ng/mL (<0.03)
[2020-08-09 04:45] LABS: Hematocrit 35 % (42-52); Hemoglobin 11.8 g/dL (14.0-18.0); Mean Corpuscular HGB Conc 34 g/dL (31-36); Mean Corpuscular Hemoglobin 41 pg (27-31); Mean Corpuscular Volume 120 fL (80-94); Mean Platelet Volume 7.2 fL (7.4-10.4); Platelet Count 312 10^3/uL (150-450); Red Blood Count 2.88 10^6 /uL (4.18-5.48); Red Cell Distribution Width 15 % (10-15)
[2020-08-09 04:53] LABS: BUN/Creatinine Ratio 17.3 (8-20); Calcium 8.3 mg/dL (8.6-10.3); EGFR African American 190.1 (>60); EGFR Non-African American 157.1 (>60); Magnesium 1.8 mg/dL (1.9-2.7); Potassium 3.5 mmol/L (3.5-5.0)
[2020-08-09 05:01] LABS: ABS Eosinophils 0.1 10^3/ul (0-0.6); ABS Monocytes 0.5 10^3/ul (0-0.8); ABS Neutrophils 2.4 10^3/ul (1.5-7.7); Eosinophil % 1.6 %; Lymphocyte % 24.6 %; Nucleated Red Blood Cells % 0.7
[2020-08-09 05:02] LABS: Polychromasia 1+
[2020-08-09] MEDS ORDERED: Magnesium Sulfate IV 1GM/100ML 1 GM/100 ML BAG IV ONE (06:06)
[2020-08-09] MEDS: Nicotine PATCH 21 MG/24 HR PATCH TRANSDERM SCH (08:15)
[2020-08-09] MEDS: Potassium Chlor 20 meq TAB.ER PO SCH ×3 (08:17→20:12)
[2020-08-09] MEDS: Multivitamins/Minerals TAB PO SCH (08:17)
[2020-08-09] MEDS: Heparin 5000 UNITS/ML 1 mL VIAL SUBCUT SCH ×2 (08:18→20:12)
[2020-08-09] MEDS: Lactated Ringers 1000 ml BAG 1,000 ML IV SCH (14:11)
[2020-08-09] MEDS ORDERED: Calcium Carb (TUMS) 500 mg CHEW TAB PO PRN (14:26)
[2020-08-09] MEDS: Ondansetron 4 mg VIAL 2 MG/ML 2 ml VIAL IV PRN (20:12)
[2020-08-10] MEDS: Ondansetron 4 mg VIAL 2 MG/ML 2 ml VIAL IV PRN ×2 (04:10→11:32)
[2020-08-10 06:39] LABS: BUN/Creatinine Ratio 18.9 (8-20); Calcium 8.8 mg/dL (8.6-10.3); EGFR African American 126.5 (>60); EGFR Non-African American 104.6 (>60); Magnesium 1.8 mg/dL (1.9-2.7); Potassium 3.7 mmol/L (3.5-5.0)
[2020-08-10] MEDS: Nicotine PATCH 21 MG/24 HR PATCH TRANSDERM SCH ×2 (08:21→12:33)
[2020-08-10] MEDS: Heparin 5000 UNITS/ML 1 mL VIAL SUBCUT SCH ×2 (08:21→19:58)
[2020-08-10] MEDS: Potassium Chlor 20 meq TAB.ER PO SCH ×3 (08:22→19:58)
[2020-08-10] MEDS: Multivitamins/Minerals TAB PO SCH (08:23)
[2020-08-10] MEDS: Lactated Ringers 1000 ml BAG 1,000 ML IV SCH (16:24)
[2020-08-11] MEDS: Heparin 5000 UNITS/ML 1 mL VIAL SUBCUT SCH ×2 (08:41→22:16)
[2020-08-11] MEDS: Nicotine PATCH 21 MG/24 HR PATCH TRANSDERM SCH (08:41)
[2020-08-11] MEDS: Multivitamins/Minerals TAB PO SCH (08:43)
[2020-08-11] MEDS: Potassium Chlor 20 meq TAB.ER PO SCH ×3 (08:44→22:15)
[2020-08-11] MEDS: NS 0.9% 1000 ml BAG 1,000 ML IV SCH (15:45)
[2020-08-11] MEDS ORDERED: Iohexol 300 (CONTRAST) 10 ML SDV IV ONE ×2 (16:26→17:04)
[2020-08-11] MEDS: Ondansetron 4 mg VIAL 2 MG/ML 2 ml VIAL IV PRN (22:13)
[2020-08-11] MEDS: Morphine 2 MG/ML SYRINGE IV PRN (23:32)
[2020-08-12 08:12] LABS: BUN/Creatinine Ratio 29.9 (8-20); Calcium 8.6 mg/dL (8.6-10.3); EGFR African American 120.9 (>60); EGFR Non-African American 99.9 (>60); Magnesium 1.7 mg/dL (1.9-2.7); Potassium 4.3 mmol/L (3.5-5.0)
[2020-08-12 08:23] LABS: ABS Eosinophils 0.1 10^3/ul (0-0.6); ABS Monocytes 0.8 10^3/ul (0-0.8); ABS Neutrophils 2.7 10^3/ul (1.5-7.7); Eosinophil % 1.8 %; Hematocrit 31 % (42-52); Hemoglobin 10.8 g/dL (14.0-18.0); Lymphocyte % 21.9 %; Mean Corpuscular HGB Conc 34 g/dL (31-36); Mean Corpuscular Hemoglobin 41 pg (27-31); Mean Corpuscular Volume 119 fL (80-94); Mean Platelet Volume 7.9 fL (7.4-10.4); Nucleated Red Blood Cells % 0.1; Platelet Count 404 10^3/uL (150-450); Red Blood Count 2.63 10^6 /uL (4.18-5.48); Red Cell Distribution Width 15 % (10-15); White Blood Count 4.6 10^3/uL (3.5-10.8)
[2020-08-12] MEDS ORDERED: Magnesium Sulfate IV 3 GM in NS 0.9% 100 ml BAG 100 ML IVPB ONE (09:47)
[2020-08-12] MEDS: Potassium Chlor 20 meq TAB.ER PO SCH ×3 (10:06→19:54)
[2020-08-12] MEDS: Multivitamins/Minerals TAB PO SCH (10:13)
[2020-08-12] MEDS: Heparin 5000 UNITS/ML 1 mL VIAL SUBCUT SCH ×2 (10:14→19:54)
[2020-08-12] MEDS: Nicotine PATCH 21 MG/24 HR PATCH TRANSDERM SCH (10:14)
[2020-08-12] MEDS ORDERED: Diatrizoate Meg/Sod(CONTRAST) 30 ML ORAL.SOLN PO ONE (11:08)
[2020-08-12] MEDS: Morphine 2 MG/ML SYRINGE IV PRN (11:19)
[2020-08-12] MEDS: NS 0.9% 1000 ml BAG 1,000 ML IV SCH (16:41)
[2020-08-12] MEDS: Ondansetron 4 mg VIAL 2 MG/ML 2 ml VIAL IV PRN (20:08)
[2020-08-13] MEDS: NS 0.9% 1000 ml BAG 1,000 ML IV SCH (08:13)
[2020-08-13] MEDS: Nicotine PATCH 21 MG/24 HR PATCH TRANSDERM SCH (09:23)
[2020-08-13] MEDS: Potassium Chlor 20 meq TAB.ER PO SCH ×3 (09:24→21:46)
[2020-08-13] MEDS: Multivitamins/Minerals TAB PO SCH (09:25)
[2020-08-13] MEDS: Heparin 5000 UNITS/ML 1 mL VIAL SUBCUT SCH ×2 (09:31→19:53)
[2020-08-13] MEDS: Morphine 2 MG/ML SYRINGE IV PRN ×3 (13:41→23:59)
[2020-08-13 22:25] LABS: Urine Appearance Cloudy; Urine Bilirubin Negative (Negative); Urine Blood Negative (Negative); Urine Color Yellow; Urine Glucose Negative (Negative); Urine Ketones Trace (Negative); Urine Nitrite Negative (Negative); Urine Protein Negative (Negative); Urine Specific Gravity 1.019 (1.010-1.030); Urine Urobilinogen Negative (Negative)
[2020-08-14] MEDS: NS 0.9% 1000 ml BAG 1,000 ML IV SCH ×2 (01:10→14:38)
[2020-08-14 06:04] LABS: BUN/Creatinine Ratio 21.7 (8-20); Calcium 8.4 mg/dL (8.6-10.3); EGFR African American 137.2 (>60); EGFR Non-African American 113.4 (>60); Potassium 4.8 mmol/L (3.5-5.0)
[2020-08-14] MEDS: Potassium Chlor 20 meq TAB.ER PO SCH ×2 (08:04→09:17)
[2020-08-14] MEDS: Nicotine PATCH 21 MG/24 HR PATCH TRANSDERM SCH (08:04)
[2020-08-14] MEDS: Morphine 2 MG/ML SYRINGE IV PRN ×3 (08:05→23:48)
[2020-08-14] MEDS: Heparin 5000 UNITS/ML 1 mL VIAL SUBCUT SCH (08:06)
[2020-08-14] MEDS: Multivitamins/Minerals TAB PO SCH ×2 (08:06→10:34)
[2020-08-14] MEDS: Enoxaparin 40 MG/0.4 ML SYR SUBCUT SCH (14:51)
[2020-08-15] MEDS: Morphine 2 MG/ML SYRINGE IV PRN ×2 (04:19→14:06)
[2020-08-15] MEDS: NS 0.9% 1000 ml BAG 1,000 ML IV SCH (05:38)
[2020-08-15 06:24] LABS: ABS Eosinophils 0.1 10^3/ul (0-0.6); ABS Lymphocytes 1.3 10^3/ul (1.0-4.8); ABS Monocytes 0.8 10^3/ul (0-0.8); ABS Neutrophils 7.5 10^3/ul (1.5-7.7); Eosinophil % 0.7 %; Hematocrit 37 % (42-52); Hemoglobin 12.4 g/dL (14.0-18.0); Lymphocyte % 13.3 %; Mean Corpuscular HGB Conc 34 g/dL (31-36); Mean Corpuscular Hemoglobin 40 pg (27-31); Mean Corpuscular Volume 120 fL (80-94); Mean Platelet Volume 7.8 fL (7.4-10.4); Nucleated Red Blood Cells % 0.1; Platelet Count 414 10^3/uL (150-450); Red Blood Count 3.09 10^6 /uL (4.18-5.48); Red Cell Distribution Width 15 % (10-15); White Blood Count 9.7 10^3/uL (3.5-10.8)
[2020-08-15] MEDS: Nicotine PATCH 21 MG/24 HR PATCH TRANSDERM SCH (09:16)
[2020-08-15] MEDS: Potassium Chlor 20 meq TAB.ER PO SCH ×2 (09:17→11:37)
[2020-08-15] MEDS: Multivitamins/Minerals TAB PO SCH ×2 (09:17→11:37)
[2020-08-15 12:22] LABS: Calcium 8.3 mg/dL (8.6-10.3); Chloride 109 mmol/L (101-111); Magnesium 1.7 mg/dL (1.9-2.7); Sodium 133 mmol/L (135-145)
[2020-08-15 12:28] LABS: BUN/Creatinine Ratio 14.1 (8-20); Blood Urea Nitrogen 11 mg/dL (6-24); EGFR African American 119.1 (>60); EGFR Non-African American 98.4 (>60); Glucose 71 mg/dL (70-100)
[2020-08-15 12:33] LABS: Anion Gap 17 mmol/L (2-11); CO2 Carbon Dioxide 7 mmol/L (22-32)
[2020-08-15 13:22] LABS: Calcium 8.5 mg/dL (8.6-10.3)
[2020-08-15 13:26] LABS: Potassium 5.1 mmol/L (3.5-5.0)
[2020-08-15 13:28] LABS: BUN/Creatinine Ratio 13.4 (8-20); EGFR African American 141.9 (>60); EGFR Non-African American 117.3 (>60)
[2020-08-15] MEDS: Enoxaparin 40 MG/0.4 ML SYR SUBCUT SCH (14:03)
[2020-08-15] MEDS ORDERED: Magnesium Sulfate 2 gm BAG 2 GM/50 ML BAG IVPB ONE (14:22)
[2020-08-16 08:02] LABS: Calcium 8.3 mg/dL (8.6-10.3); EGFR African American 134.9 (>60); EGFR Non-African American 111.5 (>60); Potassium 4.5 mmol/L (3.5-5.0)
[2020-08-16] MEDS: Nicotine PATCH 21 MG/24 HR PATCH TRANSDERM SCH (09:00)
[2020-08-16] MEDS: Multivitamins/Minerals TAB PO SCH ×2 (09:01→09:06)
[2020-08-16] MEDS: Morphine 2 MG/ML SYRINGE IV PRN ×2 (11:37→22:08)
[2020-08-16] MEDS: Ondansetron 4 mg VIAL 2 MG/ML 2 ml VIAL IV PRN (11:43)
[2020-08-16] MEDS: Enoxaparin 40 MG/0.4 ML SYR SUBCUT SCH (14:55)
[2020-08-17 08:18] LABS: Calcium 8.1 mg/dL (8.6-10.3); EGFR African American 120.9 (>60); EGFR Non-African American 99.9 (>60); Magnesium 1.9 mg/dL (1.9-2.7); Potassium 4.3 mmol/L (3.5-5.0)
[2020-08-17 08:25] LABS: ABS Eosinophils 0.1 10^3/ul (0-0.6); ABS Lymphocytes 1.2 10^3/ul (1.0-4.8); ABS Monocytes 0.7 10^3/ul (0-0.8); ABS Neutrophils 4.3 10^3/ul (1.5-7.7); Hematocrit 34 % (42-52); Hemoglobin 11.5 g/dL (14.0-18.0); Lymphocyte % 18.5 %; Mean Corpuscular HGB Conc 34 g/dL (31-36); Mean Corpuscular Hemoglobin 40 pg (27-31); Mean Corpuscular Volume 116 fL (80-94); Mean Platelet Volume 7.8 fL (7.4-10.4); Platelet Count 461 10^3/uL (150-450); Red Blood Count 2.88 10^6 /uL (4.18-5.48); Red Cell Distribution Width 15 % (10-15); White Blood Count 6.2 10^3/uL (3.5-10.8)
[2020-08-17 09:08] LABS: BUN/Creatinine Ratio 11.7 (8-20)
[2020-08-17] MEDS: Multivitamins/Minerals TAB PO SCH ×2 (09:58→10:08)
[2020-08-17] MEDS: Nicotine PATCH 21 MG/24 HR PATCH TRANSDERM SCH (10:09)
[2020-08-17] MEDS: Enoxaparin 40 MG/0.4 ML SYR SUBCUT SCH (14:32)
[2020-08-18] MEDS: Multivitamins/Minerals TAB PO SCH (09:19)
[2020-08-18] MEDS: Nicotine PATCH 21 MG/24 HR PATCH TRANSDERM SCH (09:23)
[2020-08-18 11:45] VITALS: BP 110/56
== END 2020-08-18 12:10 | DRG 775 ==
LOC: ED 07:36 → MEDTELE 10:40 → MED 13:39 → MEDTELE 08-08 11:00 → MED 08-17 01:01
PROVIDERS: ADMIT Internal Medicine; ATTEND Student in an Organized Health Care Education/Training Program

== ENCOUNTER 2020-12-25 13:15 | Inpatient (IN) ==
[2020-12-25 14:57] LABS: Hematocrit 27 % (42-52); Hemoglobin 9.5 g/dL (14.0-18.0); Mean Corpuscular HGB Conc 35 g/dL (31-36); Mean Corpuscular Hemoglobin 36 pg (27-31); Mean Corpuscular Volume 103 fL (80-94); Platelet Count 350 10^3/uL (150-450); Red Blood Count 2.63 10^6 /uL (4.18-5.48); Red Cell Distribution Width 15 % (10-15); White Blood Count 5.8 10^3/uL (3.5-10.8)
[2020-12-25] MEDS: Lactated Ringers 1000 ml BAG 1,000 ML IV SCH ×2 (15:32→16:00)
[2020-12-25 15:37] LABS: Macrocytosis 2+; Toxic Granulation 1+
[2020-12-25 15:38] LABS: ABS Lymphocytes 0.7 10^3/ul (1.0-4.8); Lymphocyte % 12.7 %; Nucleated Red Blood Cells % 0.4
[2020-12-25 15:45] LABS: ALT 27 U/L (7-52); AST 34 U/L (13-39); Albumin 4.1 g/dL (3.2-5.2); Albumin/Globulin Ratio 1.4 (1-3); Alkaline Phosphatase 71 U/L (35-149); Blood Urea Nitrogen 21 mg/dL (6-24); CO2 Carbon Dioxide 21 mmol/L (22-32); Calcium 9.2 mg/dL (8.6-10.3); Chloride 89 mmol/L (101-111); EGFR African American 112.1 (>60); EGFR Non-African American 92.6 (>60); Glucose 134 mg/dL (70-100); Magnesium 1.1 mg/dL (1.9-2.7); Sodium 137 mmol/L (135-145); Total Protein 7.1 g/dL (6.4-8.9)
[2020-12-25] MEDS ORDERED: Iohexol 300 (CONTRAST) 10 ML SDV IV ONE (15:54)
[2020-12-25 15:56] LABS: Alcohol, S < 10 mg/dL (<10)
[2020-12-25 15:59] LABS: Anion Gap 27 mmol/L (2-11); Potassium 2.7 mmol/L (3.5-5.0)
[2020-12-25 16:26] LABS: TSH Ultra Thyroid Stim Horm 0.34 mcIU/mL (0.34-5.60)
[2020-12-25] MEDS: KCL 20 MEQ/100 ML IVPREMIX 20 MEQ/100 ML BAG IV SCH ×3 (17:27→23:32)
[2020-12-25 17:44] LABS: Urine Appearance Cloudy; Urine Bilirubin Negative (Negative); Urine Blood 1+ (Negative); Urine Color Amber; Urine Glucose Negative (Negative); Urine Ketones 2+ (Negative); Urine Nitrite Negative (Negative); Urine Protein 2+(100 mg/dL) (Negative); Urine Urobilinogen Positive (Negative)
[2020-12-25] MEDS ORDERED: Magnesium Sulfate 2 gm BAG 2 GM/50 ML BAG IVPB ONE (17:55)
[2020-12-25] MEDS ORDERED: Thiamine 100 MG/ML 2 ml VIAL (200 mg) IM ONE (17:57)
[2020-12-25 18:13] LABS: Urine Bacteria Absent (Absent); Urine Red Blood Cell Trace(0-2/hpf) (Absent); Urine White Blood Cell Absent (Absent)
[2020-12-25 18:30] LABS: PCO2 Arterial 30 mmHg (35-45); PO2 Arterial 76 mmHg (80-100)
[2020-12-25 20:09] LABS: Lipase 224 U/L (11.0-82.0)
[2020-12-25 20:14] LABS: Salicylate < 2.50 mg/dL (<30)
[2020-12-25 20:20] LABS: Acetaminophen < 15 mcg/mL
[2020-12-25] MEDS: NS 0.9% w/ 20 Meq KCL 1000 ml 1,000 ML IV SCH (20:25)
[2020-12-25] MEDS: Potassium Chlor 20 meq TAB.ER PO SCH (20:26)
[2020-12-25 20:52] LABS: Calcium 8.5 mg/dL (8.6-10.3); EGFR African American 167.1 (>60); EGFR Non-African American 138.1 (>60)
[2020-12-25 20:55] LABS: Potassium 2.6 mmol/L (3.5-5.0)
[2020-12-25] MEDS ORDERED: Potassium Chlor 20 meq TAB.ER PO ONE (21:03)
[2020-12-26] MEDS ORDERED: guaiFENesin/CODIENE 100mg/10mg 5 ML UDC ONE (00:38)
[2020-12-26] MEDS: guaiFENesin/CODIENE 100mg/10mg 5 ML UDC PO PRN ×4 (00:41→21:03)
[2020-12-26] MEDS: KCL 20 MEQ/100 ML IVPREMIX 20 MEQ/100 ML BAG IV SCH (02:14)
[2020-12-26] MEDS: NS 0.9% w/ 20 Meq KCL 1000 ml 1,000 ML IV SCH ×3 (03:09→19:43)
[2020-12-26 06:12] LABS: Hematocrit 23 % (42-52); Hemoglobin 7.9 g/dL (14.0-18.0); Mean Corpuscular HGB Conc 34 g/dL (31-36); Mean Corpuscular Hemoglobin 36 pg (27-31); Mean Corpuscular Volume 104 fL (80-94); Mean Platelet Volume 8.4 fL (7.4-10.4); Platelet Count 275 10^3/uL (150-450); Red Blood Count 2.21 10^6 /uL (4.18-5.48); Red Cell Distribution Width 16 % (10-15); White Blood Count 3.5 10^3/uL (3.5-10.8)
[2020-12-26 06:28] LABS: Calcium 8.1 mg/dL (8.6-10.3); EGFR African American 193.9 (>60); EGFR Non-African American 160.2 (>60); Magnesium 1.4 mg/dL (1.9-2.7); Potassium 3.6 mmol/L (3.5-5.0)
[2020-12-26 07:04] LABS: ABS Lymphocytes 0.8 10^3/ul (1.0-4.8); ABS Monocytes 0.6 10^3/ul (0-0.8); ABS Neutrophils 2.1 10^3/ul (1.5-7.7); Eosinophil % 0.8 %; Lymphocyte % 22.2 %; Nucleated Red Blood Cells % 0.8
[2020-12-26] MEDS ORDERED: Magnesium Sulfate 2 gm BAG 2 GM/50 ML BAG IVPB ONE (08:22)
[2020-12-26] MEDS: Potassium Chlor 20 meq TAB.ER PO SCH ×2 (08:59→21:04)
[2020-12-26] MEDS: Multivitamins/Minerals TAB PO SCH (08:59)
[2020-12-26 11:29] LABS: Urine Benzodiazepine Screen None Detected (None Detect); Urine Cannabinoids Screen None Detected (None Detect); Urine Opiates Screen Presumptive Positive (None Detect)
[2020-12-26 11:43] LABS: Urine Appearance Turbid; Urine Bilirubin Negative (Negative); Urine Blood 1+ (Negative); Urine Color Yellow; Urine Glucose Negative (Negative); Urine Ketones 1+ (Negative); Urine Nitrite Negative (Negative); Urine Protein 1+(30 mg/dL) (Negative); Urine Specific Gravity 1.026 (1.002-1.030); Urine Urobilinogen Positive (Negative)
[2020-12-26 11:47] LABS: Urine Amorphous Crystals Present (Absent); Urine Bacteria Absent (Absent); Urine Red Blood Cell 3+(>10/hpf) (Absent); Urine White Blood Cell Absent (Absent)
[2020-12-26] MEDS ORDERED: COVID-19 VACCINE, AD26(JANSSEN)/PF 0.5 ML IM ONE (18:00)
[2020-12-27] MEDS: guaiFENesin/CODIENE 100mg/10mg 5 ML UDC PO PRN ×3 (01:49→21:40)
[2020-12-27 05:51] LABS: EGFR African American 218.4 (>60); EGFR Non-African American 180.5 (>60); Magnesium 1.5 mg/dL (1.9-2.7)
[2020-12-27 05:56] LABS: Hematocrit 26 % (42-52); Hemoglobin 8.8 g/dL (14.0-18.0); Mean Corpuscular HGB Conc 34 g/dL (31-36); Mean Corpuscular Hemoglobin 36 pg (27-31); Mean Corpuscular Volume 105 fL (80-94); Mean Platelet Volume 8.9 fL (7.4-10.4); Platelet Count 298 10^3/uL (150-450); Red Blood Count 2.45 10^6 /uL (4.18-5.48); Red Cell Distribution Width 16 % (10-15); White Blood Count 2.4 10^3/uL (3.5-10.8)
[2020-12-27 06:02] LABS: Anisocytosis 1+; Macrocytosis 1+; Polychromasia 1+
[2020-12-27 06:03] LABS: ABS Lymphocytes 0.5 10^3/ul (1.0-4.8); ABS Monocytes 0.5 10^3/ul (0-0.8); ABS Neutrophils 1.3 10^3/ul (1.5-7.7); Eosinophil % 1.3 %; Lymphocyte % 20.7 %; Nucleated Red Blood Cells % 0.5
[2020-12-27] MEDS: Potassium Chlor 20 meq TAB.ER PO SCH (10:01)
[2020-12-27] MEDS: Multivitamins/Minerals TAB PO SCH (10:01)
[2020-12-27] MEDS: NS 0.9% w/ 20 Meq KCL 1000 ml 1,000 ML IV SCH (10:15)
[2020-12-27] MEDS ORDERED: Zosyn per Pharmacy NOTE FOLLOW UP SCH (14:00)
[2020-12-27] MEDS ORDERED: Piperacillin/Tazobac ADVAN 3.375 GM in NS 0.9% 100 ml BAG 100 ML IV ONE (14:30)
[2020-12-27] MEDS: ZOSYN 3.375 GM Q8H per EXTENDED INFUSION IV SCH (17:48)
[2020-12-27] MEDS: Potassium Chlor 10 meq TAB PO SCH (21:40)
[2020-12-28] MEDS: ZOSYN 3.375 GM Q8H per EXTENDED INFUSION IV SCH ×3 (02:08→18:15)
[2020-12-28] MEDS: guaiFENesin/CODIENE 100mg/10mg 5 ML UDC PO PRN ×2 (04:00→20:06)
[2020-12-28 06:24] LABS: ABS Eosinophils 0.1 10^3/ul (0-0.6); ABS Lymphocytes 0.8 10^3/ul (1.0-4.8); ABS Monocytes 0.5 10^3/ul (0-0.8); ABS Neutrophils 1.1 10^3/ul (1.5-7.7); Eosinophil % 3.3 %; Hematocrit 25 % (42-52); Hemoglobin 8.6 g/dL (14.0-18.0); Lymphocyte % 32.4 %; Mean Corpuscular HGB Conc 34 g/dL (31-36); Mean Corpuscular Hemoglobin 36 pg (27-31); Mean Corpuscular Volume 105 fL (80-94); Mean Platelet Volume 7.8 fL (7.4-10.4); Nucleated Red Blood Cells % 0.4; Platelet Count 341 10^3/uL (150-450); Red Blood Count 2.39 10^6 /uL (4.18-5.48); Red Cell Distribution Width 16 % (10-15); White Blood Count 2.5 10^3/uL (3.5-10.8)
[2020-12-28 06:42] LABS: Albumin 2.9 g/dL (3.2-5.2); Albumin/Globulin Ratio 1.2 (1-3); Calcium 8.1 mg/dL (8.6-10.3); EGFR African American 149.2 (>60); EGFR Non-African American 123.3 (>60); Globulin 2.4 g/dL (2-4); Magnesium 1.6 mg/dL (1.9-2.7); Potassium 3.3 mmol/L (3.5-5.0); Total Bilirubin 0.6 mg/dL (0.2-1.0); Total Protein 5.3 g/dL (6.4-8.9)
[2020-12-28] MEDS: Magnesium Sulfate IV 3 GM in NS 0.9% 100 ml BAG 100 ML IVPB ONE ×2 (07:56→08:47)
[2020-12-28] MEDS: Multivitamins/Minerals TAB PO SCH (07:56)
[2020-12-28] MEDS: Potassium Chlor 10 meq TAB PO SCH ×2 (07:56→20:06)
[2020-12-28] MEDS ORDERED: Albuterol/Ipratropium NEB.SOL (2.5/0.5 MG) 3 ML NEB.SOLN INH PRN (11:07)
[2020-12-28] MEDS: KCL 20 MEQ/100 ML IVPREMIX 20 MEQ/100 ML BAG IV SCH ×2 (11:17→15:15)
[2020-12-28] MEDS ORDERED: KCL 20 MEQ/100 ML IVPREMIX 20 MEQ/100 ML BAG ONE (15:13)
[2020-12-29] MEDS: ZOSYN 3.375 GM Q8H per EXTENDED INFUSION IV SCH ×3 (01:49→16:45)
[2020-12-29 05:22] LABS: Hematocrit 24 % (42-52); Hemoglobin 8.4 g/dL (14.0-18.0); Mean Corpuscular HGB Conc 35 g/dL (31-36); Mean Corpuscular Hemoglobin 37 pg (27-31); Mean Corpuscular Volume 105 fL (80-94); Mean Platelet Volume 8.1 fL (7.4-10.4); Platelet Count 364 10^3/uL (150-450); Red Blood Count 2.31 10^6 /uL (4.18-5.48); Red Cell Distribution Width 16 % (10-15); White Blood Count 3.2 10^3/uL (3.5-10.8)
[2020-12-29 05:38] LABS: EGFR African American 136.8 (>60); Magnesium 1.8 mg/dL (1.9-2.7); Potassium 3.4 mmol/L (3.5-5.0)
[2020-12-29 05:41] LABS: ABS Eosinophils 0.1 10^3/ul (0-0.6); ABS Lymphocytes 0.9 10^3/ul (1.0-4.8); ABS Monocytes 0.6 10^3/ul (0-0.8); ABS Neutrophils 1.6 10^3/ul (1.5-7.7); Eosinophil % 2.4 %; Lymphocyte % 28.7 %; Nucleated Red Blood Cells % 0.2
[2020-12-29] MEDS ORDERED: Magnesium Sulfate IV 3 GM in NS 0.9% 100 ml BAG 100 ML IVPB ONE (07:34)
[2020-12-29] MEDS ORDERED: KCL 20 MEQ/100 ML IVPREMIX 20 MEQ/100 ML BAG IV ONE (07:34)
[2020-12-29] MEDS: Multivitamins/Minerals TAB PO SCH (07:53)
[2020-12-29] MEDS: Potassium Chlor 10 meq TAB PO SCH ×2 (07:54→21:30)
[2020-12-29] MEDS: Enoxaparin 40 MG/0.4 ML SYR SUBCUT SCH (21:30)
[2020-12-29] MEDS: guaiFENesin/CODIENE 100mg/10mg 5 ML UDC PO PRN (21:35)
[2020-12-30] MEDS: ZOSYN 3.375 GM Q8H per EXTENDED INFUSION IV SCH ×2 (01:58→10:10)
[2020-12-30 06:34] LABS: Calcium 7.9 mg/dL (8.6-10.3); EGFR African American 146.5 (>60); EGFR Non-African American 121.1 (>60); Magnesium 1.8 mg/dL (1.9-2.7); Potassium 3.1 mmol/L (3.5-5.0)
[2020-12-30] MEDS ORDERED: Magnesium Sulfate IV 3 GM in NS 0.9% 100 ml BAG 100 ML IVPB ONE (07:06)
[2020-12-30] MEDS: KCL 20 MEQ/100 ML IVPREMIX 20 MEQ/100 ML BAG IV SCH ×3 (07:16→14:17)
[2020-12-30 08:08] LABS: Hematocrit 24 % (42-52); Hemoglobin 7.9 g/dL (14.0-18.0); Mean Corpuscular HGB Conc 33 g/dL (31-36); Mean Corpuscular Hemoglobin 35 pg (27-31); Mean Corpuscular Volume 106 fL (80-94); Mean Platelet Volume 8.6 fL (7.4-10.4); Platelet Count 333 10^3/uL (150-450); Red Blood Count 2.25 10^6 /uL (4.18-5.48); Red Cell Distribution Width 16 % (10-15); White Blood Count 3.2 10^3/uL (3.5-10.8)
[2020-12-30 08:54] LABS: ABS Eosinophils 0.1 10^3/ul (0-0.6); ABS Lymphocytes 0.9 10^3/ul (1.0-4.8); ABS Monocytes 0.6 10^3/ul (0-0.8); ABS Neutrophils 1.6 10^3/ul (1.5-7.7); Eosinophil % 1.7 %; Nucleated Red Blood Cells % 0.3
[2020-12-30] MEDS: Multivitamins/Minerals TAB PO SCH (09:38)
[2020-12-30] MEDS: Potassium Chlor 10 meq TAB PO SCH ×2 (09:38→20:14)
[2020-12-30] MEDS: guaiFENesin/CODIENE 100mg/10mg 5 ML UDC PO PRN ×3 (09:46→20:13)
[2020-12-30] MEDS: Nicotine PATCH 14 MG/24 HR PATCH TRANSDERM SCH (14:08)
[2020-12-30 17:20] LABS: Calcium 8.8 mg/dL (8.6-10.3); EGFR African American 134.5 (>60); EGFR Non-African American 111.2 (>60); Magnesium 2.4 mg/dL (1.9-2.7); Potassium 4.2 mmol/L (3.5-5.0)
[2020-12-30] MEDS: Enoxaparin 40 MG/0.4 ML SYR SUBCUT SCH (20:13)
[2020-12-31 08:21] LABS: EGFR African American 160.7 (>60); EGFR Non-African American 132.8 (>60); Magnesium 1.8 mg/dL (1.9-2.7); Potassium 3.7 mmol/L (3.5-5.0)
[2020-12-31] MEDS ORDERED: Magnesium Sulfate 2 gm BAG 2 GM/50 ML BAG IVPB ONE (09:52)
[2020-12-31] MEDS: Multivitamins/Minerals TAB PO SCH (10:02)
[2020-12-31] MEDS: Potassium Chlor 10 meq TAB PO SCH ×2 (10:02→19:38)
[2020-12-31] MEDS: Nicotine PATCH 14 MG/24 HR PATCH TRANSDERM SCH (10:03)
[2020-12-31] MEDS: Enoxaparin 40 MG/0.4 ML SYR SUBCUT SCH (19:38)
[2021-01-01] MEDS: Multivitamins/Minerals TAB PO SCH (09:18)
[2021-01-01] MEDS: Nicotine PATCH 14 MG/24 HR PATCH TRANSDERM SCH (09:18)
[2021-01-01] MEDS: Potassium Chlor 10 meq TAB PO SCH ×2 (09:18→20:22)
[2021-01-01] MEDS: Enoxaparin 40 MG/0.4 ML SYR SUBCUT SCH (20:24)
[2021-01-02] MEDS: Nicotine PATCH 14 MG/24 HR PATCH TRANSDERM SCH (09:15)
[2021-01-02] MEDS: Multivitamins/Minerals TAB PO SCH (09:16)
[2021-01-02] MEDS: Potassium Chlor 10 meq TAB PO SCH ×2 (09:16→20:46)
[2021-01-02] MEDS: guaiFENesin/CODIENE 100mg/10mg 5 ML UDC PO PRN (20:46)
[2021-01-02] MEDS: Enoxaparin 40 MG/0.4 ML SYR SUBCUT SCH (20:46)
[2021-01-03] MEDS: Nicotine PATCH 14 MG/24 HR PATCH TRANSDERM SCH (08:02)
[2021-01-03] MEDS: guaiFENesin/CODIENE 100mg/10mg 5 ML UDC PO PRN ×2 (08:03→19:16)
[2021-01-03] MEDS: Potassium Chlor 10 meq TAB PO SCH ×2 (08:03→19:17)
[2021-01-03] MEDS: Multivitamins/Minerals TAB PO SCH (08:03)
[2021-01-03] MEDS: Lidocaine PATCH 5% PATCH TRANSDERM SCH (13:03)
[2021-01-03] MEDS: Enoxaparin 40 MG/0.4 ML SYR SUBCUT SCH (19:17)
[2021-01-03] MEDS: Lidocaine Patch REMOVE PATCH PATCH OFF SCH (19:17)
[2021-01-04 06:19] LABS: ABS Monocytes 0.5 10^3/ul (0-0.8); ABS Neutrophils 3.3 10^3/ul (1.5-7.7); Eosinophil % 0.8 %; Hematocrit 25 % (42-52); Hemoglobin 8.2 g/dL (14.0-18.0); Lymphocyte % 20.2 %; Mean Corpuscular HGB Conc 33 g/dL (31-36); Mean Corpuscular Hemoglobin 35 pg (27-31); Mean Corpuscular Volume 106 fL (80-94); Mean Platelet Volume 8.2 fL (7.4-10.4); Nucleated Red Blood Cells % 0.1; Platelet Count 270 10^3/uL (150-450); Red Blood Count 2.33 10^6 /uL (4.18-5.48); Red Cell Distribution Width 18 % (10-15); White Blood Count 4.8 10^3/uL (3.5-10.8)
[2021-01-04 06:27] LABS: EGFR African American 139.1 (>60); Potassium 3.9 mmol/L (3.5-5.0)
[2021-01-04] MEDS: Potassium Chlor 10 meq TAB PO SCH ×2 (09:16→20:44)
[2021-01-04] MEDS: Nicotine PATCH 14 MG/24 HR PATCH TRANSDERM SCH (09:16)
[2021-01-04] MEDS: Multivitamins/Minerals TAB PO SCH (09:16)
[2021-01-04] MEDS: Lidocaine PATCH 5% PATCH TRANSDERM SCH (09:16)
[2021-01-04 10:04] LABS: C Reactive Protein 19.83 mg/L (<8.01)
[2021-01-04] MEDS ORDERED: NS 0.9% 1000 ml BAG 1,000 ML IV SCH (12:15)
[2021-01-04] MEDS: Amoxicillin/Clavul 875/125 TAB (Augmentin 875 tab) PO SCH (14:34)
[2021-01-04] MEDS: Enoxaparin 40 MG/0.4 ML SYR SUBCUT SCH (20:43)
[2021-01-04] MEDS: Lidocaine Patch REMOVE PATCH PATCH OFF SCH (20:45)
[2021-01-05] MEDS: Amoxicillin/Clavul 875/125 TAB (Augmentin 875 tab) PO SCH ×2 (01:32→08:53)
[2021-01-05 06:18] LABS: ABS Monocytes 0.4 10^3/ul (0-0.8); ABS Neutrophils 3.3 10^3/ul (1.5-7.7); Eosinophil % 0.8 %; Hematocrit 25 % (42-52); Hemoglobin 8.4 g/dL (14.0-18.0); Lymphocyte % 20.2 %; Mean Corpuscular HGB Conc 34 g/dL (31-36); Mean Corpuscular Hemoglobin 35 pg (27-31); Mean Corpuscular Volume 105 fL (80-94); Mean Platelet Volume 7.8 fL (7.4-10.4); Nucleated Red Blood Cells % 0.2; Platelet Count 272 10^3/uL (150-450); Red Blood Count 2.39 10^6 /uL (4.18-5.48); Red Cell Distribution Width 17 % (10-15); White Blood Count 4.8 10^3/uL (3.5-10.8)
[2021-01-05] MEDS: Lidocaine PATCH 5% PATCH TRANSDERM SCH (08:52)
[2021-01-05] MEDS: Nicotine PATCH 14 MG/24 HR PATCH TRANSDERM SCH (08:52)
[2021-01-05] MEDS: Multivitamins/Minerals TAB PO SCH (08:53)
[2021-01-05] MEDS: Potassium Chlor 10 meq TAB PO SCH (08:53)
[2021-01-05] MEDS: guaiFENesin/CODIENE 100mg/10mg 5 ML UDC PO PRN (09:32)
[2021-01-05 11:45] VITALS: BP 115/69
== END 2021-01-05 14:20 | DRG 137 ==
LOC: ED 13:15 → MEDTELE 17:52 → MED 01-01 18:32
PROVIDERS: ADMIT Internal Medicine; ATTEND Internal Medicine

== ENCOUNTER 2021-10-07 08:43 | Inpatient (IN) ==
[2021-10-07 09:39] LABS: Hematocrit 35 % (42-52); Hemoglobin 11.8 g/dL (14.0-18.0); Mean Corpuscular HGB Conc 34 g/dL (31-36); Mean Corpuscular Hemoglobin 37 pg (27-31); Mean Corpuscular Volume 109 fL (80-94); Platelet Count 153 10^3/uL (150-450); Red Blood Count 3.18 10^6 /uL (4.18-5.48); Red Cell Distribution Width 22 % (10-15); White Blood Count 1.9 10^3/uL (3.5-10.8)
[2021-10-07 09:44] LABS: Albumin 3.6 g/dL (3.2-5.2); Albumin/Globulin Ratio 1.4 (1-3); Calcium 7.4 mg/dL (8.6-10.3); Globulin 2.5 g/dL (2-4); Potassium 2.9 mmol/L (3.5-5.0); Total Bilirubin 0.7 mg/dL (0.2-1.0); Total Protein 6.1 g/dL (6.4-8.9); eGFR CKD-EPI 97.7 (>60)
[2021-10-07] MEDS ORDERED: Potassium Chlor 20 meq TAB.ER PO ONE (09:50)
[2021-10-07] MEDS ORDERED: Lactated Ringers 1000 ml BAG 1,000 ML IV ONE (09:50)
[2021-10-07] MEDS: KCL 20 MEQ/100 ML IVPREMIX 20 MEQ/100 ML BAG IV SCH ×3 (10:13→19:46)
[2021-10-07 11:00] LABS: RBC Morphology Normal (Normal)
[2021-10-07 11:25] LABS: ABS Lymphocytes 0.3 10^3/ul (1.0-4.8); ABS Monocytes 0.3 10^3/ul (0-0.8); ABS Neutrophils 1.4 10^3/ul (1.5-7.7); Eosinophil % 0.4 %; Nucleated Red Blood Cells % 0.5
[2021-10-07] MEDS ORDERED: NS 0.9% 1000 ml BAG 1,000 ML IV SCH (12:00)
[2021-10-07 12:23] LABS: Magnesium 0.8 mg/dL (1.9-2.7)
[2021-10-07] MEDS ORDERED: Magnesium Sulf 4 GM/100 ML IV 4,000 MG/100 ML BAG IVPB ONE (12:26)
[2021-10-07] MEDS ORDERED: Thiamine 100 MG/ML 2 ml VIAL (200 mg) IM ONE (12:29)
[2021-10-07] MEDS ORDERED: Albuterol HFA INHALER 8 gm MDI INH PRN (12:32)
[2021-10-07] MEDS ORDERED: Remdesivir 100 mg Vial 200 MG in NS 0.9% 250 ml 210 ML IV ONE (12:33)
[2021-10-07 14:47] LABS: TSH Ultra Thyroid Stim Horm 0.47 mcIU/mL (0.34-5.60)
[2021-10-07] MEDS ORDERED: Enoxaparin 40 MG/0.4 ML SYR SUBCUT SCH (15:00)
[2021-10-07 16:58] LABS: INR 1.04 (0.86-1.15)
[2021-10-07 17:16] LABS: Calcium 7.3 mg/dL (8.6-10.3); Potassium 3.4 mmol/L (3.5-5.0); eGFR CKD-EPI 105.4 (>60)
[2021-10-08] MEDS: KCL 20 MEQ/100 ML IVPREMIX 20 MEQ/100 ML BAG IV SCH ×4 (00:22→13:36)
[2021-10-08 05:46] LABS: INR 1.21 (0.86-1.15)
[2021-10-08 05:54] LABS: ABS Lymphocytes 0.4 10^3/ul (1.0-4.8); ABS Monocytes 0.2 10^3/ul (0-0.8); ABS Neutrophils 1.8 10^3/ul (1.5-7.7); Hematocrit 30 % (42-52); Lymphocyte % 16.1 %; Mean Corpuscular HGB Conc 34 g/dL (31-36); Mean Corpuscular Hemoglobin 38 pg (27-31); Mean Corpuscular Volume 111 fL (80-94); Mean Platelet Volume 7.1 fL (7.4-10.4); Nucleated Red Blood Cells % 0.4; Platelet Count 134 10^3/uL (150-450); Red Blood Count 2.65 10^6 /uL (4.18-5.48); Red Cell Distribution Width 22 % (10-15); White Blood Count 2.3 10^3/uL (3.5-10.8)
[2021-10-08 05:57] LABS: Albumin 2.9 g/dL (3.2-5.2); Albumin/Globulin Ratio 1.7 (1-3); Globulin 1.7 g/dL (2-4); Magnesium 1.5 mg/dL (1.9-2.7); Total Bilirubin 0.5 mg/dL (0.2-1.0); Total Protein 4.6 g/dL (6.4-8.9); eGFR CKD-EPI 114.1 (>60)
[2021-10-08 05:59] LABS: Calcium 5.8 mg/dL (8.6-10.3)
[2021-10-08] MEDS ORDERED: CALCIUM GLUCONATE 1GM/50ML NS 1 GM/50 ML BAG IV ONE (06:06)
[2021-10-08] MEDS ORDERED: Magnesium Sulf 4 GM/100 ML IV 4,000 MG/100 ML BAG IVPB ONE (06:07)
[2021-10-08] MEDS: Multivitamins/Minerals TAB PO SCH (07:53)
[2021-10-08] MEDS ORDERED: NON FORMULARY MED (Multivitamin Tablet) PO SCH (09:00)
[2021-10-08 10:59] LABS: Blood Urea Nitrogen 8 mg/dL (6-24); Glucose 96 mg/dL (70-100)
[2021-10-08 11:05] LABS: CO2 Carbon Dioxide 13 mmol/L (22-32); Calcium 5.1 mg/dL (8.6-10.3); Chloride 120 mmol/L (101-111); Sodium 119 mmol/L (135-145)
[2021-10-08 12:27] LABS: Calcium 7.2 mg/dL (8.6-10.3); Potassium 3.8 mmol/L (3.5-5.0); eGFR CKD-EPI 107.1 (>60)
[2021-10-08] MEDS ORDERED: Potassium Chlor 20 meq TAB.ER PO ONE (13:31)
[2021-10-08] MEDS: Remdesivir 100 mg Vial 100 MG in NS 0.9% 250 ml 230 ML IV SCH (20:43)
[2021-10-09 06:24] LABS: Albumin/Globulin Ratio 1.6 (1-3); Calcium 7.3 mg/dL (8.6-10.3); Globulin 1.9 g/dL (2-4); Potassium 3.3 mmol/L (3.5-5.0); Total Bilirubin 0.5 mg/dL (0.2-1.0); Total Protein 4.9 g/dL (6.4-8.9); eGFR CKD-EPI 107.1 (>60)
[2021-10-09] MEDS: Multivitamins/Minerals TAB PO SCH (09:37)
[2021-10-09] MEDS: Potassium Chlor 20 meq TAB.ER PO SCH ×2 (09:37→11:44)
[2021-10-09] MEDS: Remdesivir 100 mg Vial 100 MG in NS 0.9% 250 ml 230 ML IV SCH (21:40)
[2021-10-10 00:46] LABS: Urine Appearance Clear; Urine Bilirubin Negative (Negative); Urine Blood 1+ (Negative); Urine Color Yellow; Urine Glucose Negative (Negative); Urine Ketones Negative (Negative); Urine Nitrite Negative (Negative); Urine Protein Negative (Negative); Urine Specific Gravity 1.013 (1.002-1.030); Urine Urobilinogen Negative (Negative)
[2021-10-10 00:58] LABS: Urine Bacteria Absent (Absent); Urine Red Blood Cell 1+(3-5/hpf) (Absent); Urine Squamous Epithelial Cell Present (Absent); Urine White Blood Cell Trace(0-5/hpf) (Absent)
[2021-10-10 06:29] LABS: Albumin/Globulin Ratio 1.6 (1-3); Calcium 7.7 mg/dL (8.6-10.3); Globulin 1.9 g/dL (2-4); Potassium 3.6 mmol/L (3.5-5.0); Total Bilirubin 0.5 mg/dL (0.2-1.0); Total Protein 4.9 g/dL (6.4-8.9); eGFR CKD-EPI 101.2 (>60)
[2021-10-10] MEDS: Multivitamins/Minerals TAB PO SCH (08:53)
[2021-10-10] MEDS: Potassium Chlor 10 meq TAB PO SCH (21:11)
[2021-10-10] MEDS: Remdesivir 100 mg Vial 100 MG in NS 0.9% 250 ml 230 ML IV SCH (21:14)
[2021-10-11 07:26] LABS: Albumin/Globulin Ratio 1.5 (1-3); Potassium 3.7 mmol/L (3.5-5.0); Total Bilirubin 0.5 mg/dL (0.2-1.0); eGFR CKD-EPI 101.2 (>60)
[2021-10-11] MEDS: Potassium Chlor 10 meq TAB PO SCH ×2 (09:13→21:26)
[2021-10-11] MEDS: Multivitamins/Minerals TAB PO SCH (09:14)
[2021-10-11] MEDS: Remdesivir 100 mg Vial 100 MG in NS 0.9% 250 ml 230 ML IV SCH (21:26)
[2021-10-12 08:54] LABS: Albumin 3.1 g/dL (3.2-5.2); Albumin/Globulin Ratio 1.6 (1-3); Calcium 8.3 mg/dL (8.6-10.3); Potassium 4.3 mmol/L (3.5-5.0); Total Bilirubin 0.6 mg/dL (0.2-1.0); Total Protein 5.1 g/dL (6.4-8.9); eGFR CKD-EPI 101.2 (>60)
[2021-10-12] MEDS: Potassium Chlor 10 meq TAB PO SCH (08:57)
[2021-10-12] MEDS: Multivitamins/Minerals TAB PO SCH (09:04)
[2021-10-12 15:43] VITALS: BP 119/67
== END 2021-10-12 16:18 | disposition home health service (06) | DRG 137 ==
LOC: ED 08:43 → SUATTDRO 11:58 → EDHOLD 11:58 → MEDTELE 15:15
PROVIDERS: ADMIT Hospitalist; ATTEND Internal Medicine

== ENCOUNTER 2021-12-17 15:02 | Inpatient (IN) ==
[2021-12-17] MEDS ORDERED: NS 0.9% 1000 ml BAG 1,000 ML IV ONE (15:17)
[2021-12-17 16:51] LABS: ABS Lymphocytes 0.8 10^3/ul (1.0-4.8); ABS Monocytes 0.4 10^3/ul (0-0.8); ABS Neutrophils 2.8 10^3/ul (1.5-7.7); Eosinophil % 0.4 %; Hematocrit 28 % (42-52); Hemoglobin 9.9 g/dL (14.0-18.0); Lymphocyte % 19.1 %; Mean Corpuscular HGB Conc 35 g/dL (31-36); Mean Corpuscular Hemoglobin 35 pg (27-31); Mean Corpuscular Volume 99 fL (80-94); Mean Platelet Volume 7.7 fL (7.4-10.4); Nucleated Red Blood Cells % 0.1; Platelet Count 224 10^3/uL (150-450); Red Blood Count 2.83 10^6 /uL (4.18-5.48); Red Cell Distribution Width 17 % (10-15)
[2021-12-17 17:32] LABS: Albumin 3.6 g/dL (3.2-5.2); Albumin/Globulin Ratio 1.5 (1-3); Calcium 8.9 mg/dL (8.6-10.3); Globulin 2.4 g/dL (2-4); Magnesium 1.2 mg/dL (1.9-2.7); eGFR CKD-EPI 97.5 (>60)
[2021-12-17 17:35] LABS: Potassium 2.5 mmol/L (3.5-5.0)
[2021-12-17] MEDS ORDERED: Potassium Chlor 20 meq TAB.ER PO ONE (17:35)
[2021-12-17] MEDS ORDERED: Magnesium Sulfate 2 gm BAG 2 GM/50 ML BAG IVPB ONE (18:08)
[2021-12-17] MEDS ORDERED: Potassium Chloride LIQUID 20 MEQ/15 ML LIQUID PO ONE (18:13)
[2021-12-17 18:46] LABS: High Sensitivity Troponin 1 Hr 12 pg/mL (<20)
[2021-12-17] MEDS: KCL 10 MEQ/50 ML IVPREMIX 10 MEQ/50 ML BAG IV SCH ×2 (18:46→20:06)
[2021-12-17] MEDS ORDERED: Albuterol HFA INHALER 8 gm MDI INH PRN (19:26)
[2021-12-17] MEDS ORDERED: Lorazepam PYXIS KEY PRN (19:37)
[2021-12-17 20:21] LABS: Urine Appearance Clear; Urine Bilirubin 1+ (Negative); Urine Blood 1+ (Negative); Urine Color Amber; Urine Glucose Negative (Negative); Urine Ketones 2+ (Negative); Urine Nitrite Negative (Negative); Urine Protein 2+(100 mg/dL) (Negative); Urine Specific Gravity 1.024 (1.002-1.030); Urine Urobilinogen Positive (Negative)
[2021-12-17 20:42] LABS: Urine Bacteria Absent (Absent); Urine Red Blood Cell 1+(3-5/hpf) (Absent); Urine Squamous Epithelial Cell Present (Absent); Urine White Blood Cell Trace(0-5/hpf) (Absent)
[2021-12-17] MEDS: Heparin 5000 UNITS/ML 1 mL VIAL SUBCUT SCH (21:04)
[2021-12-18] MEDS ORDERED: NS 0.9% 1000 ml BAG 1,000 ML IV ONE ×2 (03:33→05:42)
[2021-12-18] MEDS: NS 0.9% 1000 ml BAG 1,000 ML IV SCH ×2 (04:57→15:42)
[2021-12-18 06:05] LABS: Hematocrit 22 % (42-52); Hemoglobin 7.6 g/dL (14.0-18.0); Mean Corpuscular HGB Conc 34 g/dL (31-36); Mean Corpuscular Hemoglobin 34 pg (27-31); Mean Corpuscular Volume 100 fL (80-94); Mean Platelet Volume 7.8 fL (7.4-10.4); Platelet Count 168 10^3/uL (150-450); Red Blood Count 2.24 10^6 /uL (4.18-5.48); Red Cell Distribution Width 16 % (10-15); White Blood Count 2.4 10^3/uL (3.5-10.8)
[2021-12-18 06:40] LABS: Calcium 7.8 mg/dL (8.6-10.3); Magnesium 1.6 mg/dL (1.9-2.7); eGFR CKD-EPI 104.2 (>60)
[2021-12-18 06:42] LABS: Potassium 2.5 mmol/L (3.5-5.0)
[2021-12-18] MEDS ORDERED: Magnesium Sulfate IV 3 GM in NS 0.9% 100 ml BAG 100 ML IVPB ONE (06:42)
[2021-12-18] MEDS ORDERED: Potassium Chlor 20 meq TAB.ER PO ONE (06:43)
[2021-12-18] MEDS ORDERED: Magnesium Sulfate 2 GM IV (Premix) IVPB ONE (08:00)
[2021-12-18] MEDS: KCL 20 MEQ/100 ML IVPREMIX 20 MEQ/100 ML BAG IV SCH ×3 (08:22→14:23)
[2021-12-18] MEDS ORDERED: Vitamin THERAPEUTIC TAB PO SCH (09:00)
[2021-12-18] MEDS ORDERED: Magnesium Sulfate 1 GM IV 1 GM/100 ML BAG IV ONE (09:00)
[2021-12-18] MEDS: Potassium Chlor 10 meq TAB PO SCH (09:36)
[2021-12-18] MEDS: Heparin 5000 UNITS/ML 1 mL VIAL SUBCUT SCH ×2 (09:39→20:31)
[2021-12-18 11:27] LABS: ABS Eosinophils 0.1 10^3/ul (0-0.6); ABS Lymphocytes 0.8 10^3/ul (1.0-4.8); ABS Monocytes 0.2 10^3/ul (0-0.8); ABS Neutrophils 1.3 10^3/ul (1.5-7.7); Anisocytosis 1+; Eosinophil % 2.4 %; Lymphocyte % 32.8 %
[2021-12-18 13:37] LABS: Magnesium 2.6 mg/dL (1.9-2.7); Potassium 3.2 mmol/L (3.5-5.0)
[2021-12-18] MEDS ORDERED: Ondansetron 4 mg VIAL 2 MG/ML 2 ml VIAL IV PRN (20:35)
[2021-12-18] MEDS: LORazepam 2 mg VIAL 1 ml IV PUSH SCH (23:05)
[2021-12-19] MEDS: NS 0.9% 1000 ml BAG 1,000 ML IV SCH ×2 (01:24→22:19)
[2021-12-19 04:30] LABS: Hematocrit 26 % (42-52); Hemoglobin 8.7 g/dL (14.0-18.0); Mean Corpuscular HGB Conc 34 g/dL (31-36); Mean Corpuscular Hemoglobin 34 pg (27-31); Mean Corpuscular Volume 102 fL (80-94); Mean Platelet Volume 7.9 fL (7.4-10.4); Platelet Count 177 10^3/uL (150-450); Red Blood Count 2.55 10^6 /uL (4.18-5.48); Red Cell Distribution Width 16 % (10-15); White Blood Count 2.2 10^3/uL (3.5-10.8)
[2021-12-19 05:18] LABS: Calcium 7.6 mg/dL (8.6-10.3); Magnesium 1.8 mg/dL (1.9-2.7); Potassium 3.3 mmol/L (3.5-5.0)
[2021-12-19 05:24] LABS: eGFR CKD-EPI 116.8 (>60)
[2021-12-19 05:56] LABS: ABS Eosinophils 0.1 10^3/ul (0-0.6); ABS Lymphocytes 0.9 10^3/ul (1.0-4.8); ABS Monocytes 0.3 10^3/ul (0-0.8); Lymphocyte % 40.2 %; Nucleated Red Blood Cells % 0.1; RBC Morphology Normal (Normal); Toxic Granulation 1+
[2021-12-19] MEDS ORDERED: Magnesium Sulfate 2 gm BAG 2 GM/50 ML BAG IVPB ONE (06:13)
[2021-12-19] MEDS: KCL 20 MEQ/100 ML IVPREMIX 20 MEQ/100 ML BAG IV SCH ×3 (06:43→10:59)
[2021-12-19] MEDS: LORazepam 2 mg VIAL 1 ml IV PUSH SCH (08:26)
[2021-12-19] MEDS: Heparin 5000 UNITS/ML 1 mL VIAL SUBCUT SCH ×2 (08:27→19:50)
[2021-12-19] MEDS: Potassium Chlor 10 meq TAB PO SCH (08:46)
[2021-12-20 07:47] LABS: Calcium 7.5 mg/dL (8.6-10.3); Magnesium 1.5 mg/dL (1.9-2.7); Potassium 3.1 mmol/L (3.5-5.0); eGFR CKD-EPI 117.7 (>60)
[2021-12-20] MEDS ORDERED: Potassium Chloride LIQUID 20 MEQ/15 ML LIQUID PO ONE (08:05)
[2021-12-20] MEDS ORDERED: Magnesium Sulfate IV 3 GM in NS 0.9% 100 ml BAG 100 ML IVPB ONE (08:05)
[2021-12-20] MEDS ORDERED: Magnesium Sulfate 2 GM IV (Premix) IVPB ONE (08:30)
[2021-12-20] MEDS ORDERED: Magnesium Sulfate 1 GM IV 1 GM/100 ML BAG IV ONE (09:30)
[2021-12-20] MEDS: Heparin 5000 UNITS/ML 1 mL VIAL SUBCUT SCH ×2 (10:20→20:03)
[2021-12-20] MEDS: NS 0.9% 1000 ml BAG 1,000 ML IV SCH (10:20)
[2021-12-20] MEDS: Potassium Chlor 10 meq TAB PO SCH (10:21)
[2021-12-20 18:25] LABS: Calcium 7.8 mg/dL (8.6-10.3); Magnesium 2.4 mg/dL (1.9-2.7); Potassium 3.1 mmol/L (3.5-5.0); eGFR CKD-EPI 111.1 (>60)
[2021-12-20] MEDS: KCL 20 MEQ/100 ML IVPREMIX 20 MEQ/100 ML BAG IV SCH ×2 (20:01→22:38)
[2021-12-21] MEDS: KCL 20 MEQ/100 ML IVPREMIX 20 MEQ/100 ML BAG IV SCH ×4 (01:03→17:40)
[2021-12-21 06:05] LABS: ABS Lymphocytes 0.8 10^3/ul (1.0-4.8); ABS Monocytes 0.5 10^3/ul (0-0.8); ABS Neutrophils 1.8 10^3/ul (1.5-7.7); Eosinophil % 1.1 %; Hematocrit 23 % (42-52); Hemoglobin 7.7 g/dL (14.0-18.0); Lymphocyte % 25.7 %; Mean Corpuscular HGB Conc 33 g/dL (31-36); Mean Corpuscular Hemoglobin 35 pg (27-31); Mean Corpuscular Volume 105 fL (80-94); Mean Platelet Volume 7.7 fL (7.4-10.4); Nucleated Red Blood Cells % 0.1; Platelet Count 206 10^3/uL (150-450); Red Blood Count 2.22 10^6 /uL (4.18-5.48); Red Cell Distribution Width 16 % (10-15); White Blood Count 3.2 10^3/uL (3.5-10.8)
[2021-12-21 06:37] LABS: CO2 Carbon Dioxide 22 mmol/L (22-32); Calcium 7.4 mg/dL (8.6-10.3); Chloride 106 mmol/L (101-111); Magnesium 1.8 mg/dL (1.9-2.7); Sodium 135 mmol/L (135-145)
[2021-12-21 06:39] LABS: Anion Gap 7 mmol/L (2-11)
[2021-12-21 06:42] LABS: Blood Urea Nitrogen 7 mg/dL (6-24); Glucose 115 mg/dL (70-100); eGFR CKD-EPI 113.4 (>60)
[2021-12-21] MEDS ORDERED: Magnesium Sulfate 2 gm BAG 2 GM/50 ML BAG IVPB ONE (08:02)
[2021-12-21] MEDS ORDERED: Potassium Chlor 20 meq TAB.ER PO SCH (09:00)
[2021-12-21] MEDS: Heparin 5000 UNITS/ML 1 mL VIAL SUBCUT SCH ×2 (10:52→21:12)
[2021-12-21] MEDS ORDERED: Potassium Chlor 20 meq TAB.ER PO ONE (16:28)
[2021-12-21 19:12] LABS: Ferritin 727.4 ng/mL (24-336)
[2021-12-21] MEDS: LORazepam 2 mg VIAL 1 ml IV PUSH SCH (21:14)
[2021-12-21] MEDS: NS 0.9% 1000 ml BAG 1,000 ML IV SCH (23:08)
[2021-12-22] MEDS: LORazepam 2 mg VIAL 1 ml IV PUSH SCH (02:51)
[2021-12-22 05:55] LABS: Hematocrit 22 % (42-52); Hemoglobin 7.2 g/dL (14.0-18.0); Mean Corpuscular HGB Conc 34 g/dL (31-36); Mean Corpuscular Hemoglobin 35 pg (27-31); Mean Corpuscular Volume 103 fL (80-94); Mean Platelet Volume 7.2 fL (7.4-10.4); Platelet Count 234 10^3/uL (150-450); Red Blood Count 2.09 10^6 /uL (4.18-5.48); Red Cell Distribution Width 17 % (10-15); White Blood Count 3.6 10^3/uL (3.5-10.8)
[2021-12-22 06:08] LABS: INR 1.39 (0.86-1.15)
[2021-12-22 06:27] LABS: Calcium 7.5 mg/dL (8.6-10.3); Magnesium 1.5 mg/dL (1.9-2.7)
[2021-12-22 06:32] LABS: Potassium 2.4 mmol/L (3.5-5.0)
[2021-12-22 06:33] LABS: eGFR CKD-EPI 107.7 (>60)
[2021-12-22] MEDS ORDERED: KCL 20 MEQ/100 ML IVPREMIX 20 MEQ/100 ML BAG IV ONE (06:57)
[2021-12-22] MEDS ORDERED: Magnesium Sulf 4 GM/100 ML IV 4,000 MG/100 ML BAG IVPB ONE (06:59)
[2021-12-22 07:25] LABS: Macrocytosis 1+
[2021-12-22 07:26] LABS: ABS Monocytes 0.7 10^3/ul (0-0.8); ABS Neutrophils 1.9 10^3/ul (1.5-7.7); Eosinophil % 0.7 %; Lymphocyte % 26.8 %
[2021-12-22] MEDS: KCL 20 MEQ/100 ML IVPREMIX 20 MEQ/100 ML BAG IV SCH ×3 (07:54→13:03)
[2021-12-22] MEDS: Heparin 5000 UNITS/ML 1 mL VIAL SUBCUT SCH ×2 (07:56→20:50)
[2021-12-22] MEDS: Potassium Chlor 20 meq TAB.ER PO SCH (07:56)
[2021-12-23 08:01] LABS: ABS Eosinophils 0.1 10^3/ul (0-0.6); ABS Lymphocytes 1.1 10^3/ul (1.0-4.8); ABS Monocytes 0.7 10^3/ul (0-0.8); Eosinophil % 1.4 %; Hematocrit 23 % (42-52); Hemoglobin 7.9 g/dL (14.0-18.0); Lymphocyte % 21.8 %; Mean Corpuscular HGB Conc 34 g/dL (31-36); Mean Corpuscular Hemoglobin 35 pg (27-31); Mean Corpuscular Volume 102 fL (80-94); Mean Platelet Volume 7.1 fL (7.4-10.4); Nucleated Red Blood Cells % 0.1; Platelet Count 285 10^3/uL (150-450); Red Blood Count 2.28 10^6 /uL (4.18-5.48); Red Cell Distribution Width 17 % (10-15); White Blood Count 4.9 10^3/uL (3.5-10.8)
[2021-12-23 08:35] LABS: Calcium 7.8 mg/dL (8.6-10.3); Magnesium 1.6 mg/dL (1.9-2.7); Potassium 3.1 mmol/L (3.5-5.0); eGFR CKD-EPI 107.7 (>60)
[2021-12-23] MEDS: Potassium Chlor 20 meq TAB.ER PO SCH (11:34)
[2021-12-23] MEDS: Heparin 5000 UNITS/ML 1 mL VIAL SUBCUT SCH ×2 (11:35→21:16)
[2021-12-23] MEDS ORDERED: Magnesium Sulfate 2 gm BAG 2 GM/50 ML BAG IVPB ONE (17:03)
[2021-12-23] MEDS: KCL 20 MEQ/100 ML IVPREMIX 20 MEQ/100 ML BAG IV SCH (20:49)
[2021-12-24] MEDS: KCL 20 MEQ/100 ML IVPREMIX 20 MEQ/100 ML BAG IV SCH ×2 (00:26→03:42)
[2021-12-24] MEDS: NS 0.9% 1000 ml BAG 1,000 ML IV SCH ×2 (05:54→16:08)
[2021-12-24 06:19] LABS: ABS Eosinophils 0.1 10^3/ul (0-0.6); ABS Lymphocytes 1.2 10^3/ul (1.0-4.8); ABS Monocytes 0.6 10^3/ul (0-0.8); ABS Neutrophils 3.9 10^3/ul (1.5-7.7); Eosinophil % 1.3 %; Hematocrit 24 % (42-52); Hemoglobin 7.9 g/dL (14.0-18.0); Mean Corpuscular HGB Conc 33 g/dL (31-36); Mean Corpuscular Hemoglobin 34 pg (27-31); Mean Corpuscular Volume 104 fL (80-94); Mean Platelet Volume 7.3 fL (7.4-10.4); Nucleated Red Blood Cells % 0.1; Platelet Count 335 10^3/uL (150-450); Red Blood Count 2.34 10^6 /uL (4.18-5.48); Red Cell Distribution Width 17 % (10-15); White Blood Count 5.8 10^3/uL (3.5-10.8)
[2021-12-24 06:37] LABS: Calcium 7.9 mg/dL (8.6-10.3); Magnesium 1.9 mg/dL (1.9-2.7); Potassium 3.8 mmol/L (3.5-5.0); eGFR CKD-EPI 106.5 (>60)
[2021-12-24] MEDS: Potassium Chlor 20 meq TAB.ER PO SCH ×2 (09:22→09:38)
[2021-12-24] MEDS: Heparin 5000 UNITS/ML 1 mL VIAL SUBCUT SCH ×3 (09:22→20:19)
[2021-12-25] MEDS: NS 0.9% 1000 ml BAG 1,000 ML IV SCH (02:28)
[2021-12-25] MEDS: Heparin 5000 UNITS/ML 1 mL VIAL SUBCUT SCH (10:12)
[2021-12-25] MEDS: Potassium Chlor 20 meq TAB.ER PO SCH (10:15)
[2021-12-26 06:50] LABS: ABS Eosinophils 0.1 10^3/ul (0-0.6); ABS Monocytes 0.5 10^3/ul (0-0.8); ABS Neutrophils 2.7 10^3/ul (1.5-7.7); Eosinophil % 1.5 %; Hematocrit 24 % (42-52); Hemoglobin 8.1 g/dL (14.0-18.0); Lymphocyte % 23.2 %; Mean Corpuscular HGB Conc 33 g/dL (31-36); Mean Corpuscular Hemoglobin 34 pg (27-31); Mean Corpuscular Volume 103 fL (80-94); Mean Platelet Volume 7.2 fL (7.4-10.4); Platelet Count 303 10^3/uL (150-450); Red Blood Count 2.38 10^6 /uL (4.18-5.48); Red Cell Distribution Width 16 % (10-15); White Blood Count 4.2 10^3/uL (3.5-10.8)
[2021-12-26] MEDS: Potassium Chlor 20 meq TAB.ER PO SCH (10:13)
[2021-12-27 06:03] LABS: ABS Eosinophils 0.1 10^3/ul (0-0.6); ABS Monocytes 0.4 10^3/ul (0-0.8); ABS Neutrophils 2.8 10^3/ul (1.5-7.7); Eosinophil % 1.6 %; Hematocrit 24 % (42-52); Hemoglobin 7.7 g/dL (14.0-18.0); Lymphocyte % 23.1 %; Mean Corpuscular HGB Conc 33 g/dL (31-36); Mean Corpuscular Hemoglobin 34 pg (27-31); Mean Corpuscular Volume 103 fL (80-94); Mean Platelet Volume 7.7 fL (7.4-10.4); Platelet Count 273 10^3/uL (150-450); Red Blood Count 2.28 10^6 /uL (4.18-5.48); Red Cell Distribution Width 17 % (10-15); White Blood Count 4.3 10^3/uL (3.5-10.8)
[2021-12-27 06:12] LABS: CO2 Carbon Dioxide 17 mmol/L (22-32); Calcium 7.5 mg/dL (8.6-10.3); Sodium 137 mmol/L (135-145)
[2021-12-27 06:17] LABS: Blood Urea Nitrogen 7 mg/dL (6-24); Glucose 77 mg/dL (70-100); eGFR CKD-EPI 106.5 (>60)
[2021-12-27 06:18] LABS: Chloride 112 mmol/L (101-111)
[2021-12-27 06:19] LABS: Anion Gap 8 mmol/L (2-11)
[2021-12-27] MEDS: Potassium Chlor 20 meq TAB.ER PO SCH (07:56)
[2021-12-27 08:00] LABS: Potassium Redraw 3.1 mmol/L (3.5-5.0)
[2021-12-27] MEDS: KCL 20 MEQ/100 ML IVPREMIX 20 MEQ/100 ML BAG IV SCH ×3 (09:17→15:02)
[2021-12-27] MEDS ORDERED: Potassium Chlor 20 meq TAB.ER PO ONE (13:34)
[2021-12-27 14:25] LABS: Magnesium 1.5 mg/dL (1.9-2.7)
[2021-12-27] MEDS ORDERED: NS 0.9% 500 ml BAG 500 ML IV ONE (18:39)
[2021-12-27 20:53] LABS: Hematocrit 24 % (42-52); Hemoglobin 7.7 g/dL (14.0-18.0)
[2021-12-27 21:31] LABS: Calcium 7.6 mg/dL (8.6-10.3); Potassium 3.9 mmol/L (3.5-5.0); eGFR CKD-EPI 103.6 (>60)
[2021-12-27 23:28] LABS: Rapid COVID-19 Molecular Undetected (Undetected)
[2021-12-28 05:24] LABS: ABS Basophils 0.1 10^3/ul (0-0.2); ABS Eosinophils 0.1 10^3/ul (0-0.6); ABS Lymphocytes 1.5 10^3/ul (1.0-4.8); ABS Monocytes 0.5 10^3/ul (0-0.8); ABS Neutrophils 3.4 10^3/ul (1.5-7.7); Eosinophil % 1.5 %; Hematocrit 26 % (42-52); Hemoglobin 8.5 g/dL (14.0-18.0); Lymphocyte % 27.7 %; Mean Corpuscular HGB Conc 32 g/dL (31-36); Mean Corpuscular Hemoglobin 34 pg (27-31); Mean Corpuscular Volume 105 fL (80-94); Mean Platelet Volume 7.8 fL (7.4-10.4); Platelet Count 299 10^3/uL (150-450); Red Blood Count 2.52 10^6 /uL (4.18-5.48); Red Cell Distribution Width 16 % (10-15); White Blood Count 5.6 10^3/uL (3.5-10.8)
[2021-12-28 05:40] LABS: Calcium 7.8 mg/dL (8.6-10.3); Magnesium 1.6 mg/dL (1.9-2.7); Potassium 3.9 mmol/L (3.5-5.0); eGFR CKD-EPI 104.7 (>60)
[2021-12-28] MEDS ORDERED: Magnesium Sulfate 2 gm BAG 2 GM/50 ML BAG IVPB ONE (07:34)
[2021-12-28] MEDS ORDERED: Potassium Chlor 20 meq TAB.ER PO ONE (07:34)
[2021-12-28] MEDS: Potassium Chlor 20 meq TAB.ER PO SCH (11:55)
[2021-12-28] MEDS ORDERED: fentaNYL 100 mcg/2 ml 50 MCG/ML VIAL ONE (16:48)
[2021-12-28] MEDS ORDERED: Midazolam 10 mg/10 ml VIAL 1 mg/ml 10 ml VIAL (10 mg) ONE (16:48)
[2021-12-29 06:08] LABS: Calcium 7.8 mg/dL (8.6-10.3); Magnesium 1.7 mg/dL (1.9-2.7); eGFR CKD-EPI 106.5 (>60)
[2021-12-29] MEDS: Potassium Chlor 20 meq TAB.ER PO SCH (10:45)
[2021-12-29 13:04] VITALS: BP 98/60
== END 2021-12-29 14:30 | DRG 308 ==
LOC: ED 15:02 → SUATTDRO 19:54 → EDHOLD 19:54 → ICU 21:17 → MEDTELE 12-19 19:15
PROVIDERS: ADMIT Student in an Organized Health Care Education/Training Program; ATTEND Internal Medicine

== ENCOUNTER 2022-05-31 23:16 | Inpatient (IN) ==
[2022-05-31] MEDS ORDERED: Lactated Ringers 1000 ml BAG 1,000 ML IV ONE (23:32)
[2022-05-31 23:41] LABS: Hematocrit 40 % (42-52); Hemoglobin 13.3 g/dL (14.0-18.0); Mean Corpuscular HGB Conc 33 g/dL (31-36); Mean Corpuscular Hemoglobin 30 pg (27-31); Mean Corpuscular Volume 90 fL (80-94); Mean Platelet Volume 7.6 fL (7.4-10.4); Platelet Count 158 10^3/uL (150-450); Red Cell Distribution Width 20 % (10-15); White Blood Count 1.4 10^3/uL (3.5-10.8)
[2022-05-31 23:43] LABS: ABS Neutrophils 0.9 10^3/ul (1.5-7.7)
[2022-05-31] MEDS ORDERED: Cefepime 1 GM in Dextrose 1 GM/50 ML BAG IV ONE (23:44)
[2022-05-31 23:53] LABS: Venous Bicarbonate HCO3 17.5 mmol/L (24-28)
[2022-06-01 00:13] LABS: Albumin 3.2 g/dL (3.2-5.2); Albumin/Globulin Ratio 1.4 (1-3); Calcium 6.6 mg/dL (8.6-10.3); Globulin 2.3 g/dL (2-4); Magnesium 1.4 mg/dL (1.9-2.7); Potassium 3.7 mmol/L (3.5-5.0); Total Bilirubin 1.2 mg/dL (0.2-1.0); Total Protein 5.5 g/dL (6.4-8.9)
[2022-06-01] MEDS ORDERED: Iodixanol (CONTRAST) 320 MG/ML 100 ML SDV IV ONE (00:29)
[2022-06-01] MEDS ORDERED: Magnesium Sulfate 2 gm BAG 2 GM/50 ML BAG IVPB ONE ×2 (00:31→02:55)
[2022-06-01] MEDS ORDERED: D5W 1000 ml BAG 1,000 ML IV SCH ×2 (01:00→03:00)
[2022-06-01 01:02] LABS: High Sensitivity Troponin 1 Hr 37 pg/mL (<20)
[2022-06-01 01:34] LABS: C Reactive Protein 574.92 mg/L (<8.01)
[2022-06-01] MEDS ORDERED: Acetaminophen IV 1 GM/100ML 1,000 MG/100 ML BAG IV ONE (01:46)
[2022-06-01] MEDS ORDERED: Lactated Ringers 1000 ml BAG 1,000 ML IV ONE ×2 (01:46→02:56)
[2022-06-01] MEDS ORDERED: Vancomycin 1,000 MG in NS 0.9% 250 ml 250 ML IVPB ONE (01:57)
[2022-06-01 02:47] LABS: Eosinophil % 0.8 %; Lymphocyte % 28.7 %
[2022-06-01 02:48] LABS: ABS Lymphocytes 0.4 10^3/ul (1.0-4.8); ABS Monocytes 0.1 10^3/ul (0-0.8); Nucleated Red Blood Cells % 0.3
[2022-06-01] MEDS ORDERED: Thiamine 100 MG/ML 2 ml VIAL (200 mg) IM ONE (02:49)
[2022-06-01] MEDS ORDERED: Ondansetron 4 mg VIAL 2 MG/ML 2 ml VIAL IV PRN (02:51)
[2022-06-01] MEDS ORDERED: Albuterol HFA INHALER 8 gm MDI INH PRN (02:53)
[2022-06-01] MEDS ORDERED: LORazepam 2 mg VIAL 1 ml IV PUSH SCH (03:00)
[2022-06-01] MEDS: Enoxaparin 40 MG/0.4 ML SYR SUBCUT SCH (03:51)
[2022-06-01 04:29] LABS: Urine Appearance Clear; Urine Color Yellow; Urine Glucose Negative (Negative)
[2022-06-01 04:30] LABS: Urine Bilirubin 1+ (Small) (Negative); Urine Blood 3+ (Large) (Negative); Urine Ketones Trace (Negative); Urine Nitrite Negative (Negative); Urine Protein 1+ (30 mg/dL) (Negative); Urine Urobilinogen 0.2 (Negative) (Negative)
[2022-06-01 04:39] LABS: Urine Bacteria Absent (Absent); Urine Red Blood Cell 2+(6-10/hpf) (Absent); Urine Squamous Epithelial Cell Present (Absent); Urine White Blood Cell 1+(6-10/hpf) (Absent)
[2022-06-01] MEDS ORDERED: Remdesivir 100 mg Vial 200 MG in NS 0.9% 250 ml 210 ML IV ONE (05:00)
[2022-06-01 05:10] LABS: Hematocrit 35 % (42-52); Hemoglobin 11.4 g/dL (14.0-18.0); Mean Corpuscular HGB Conc 33 g/dL (31-36); Mean Corpuscular Hemoglobin 29 pg (27-31); Mean Corpuscular Volume 89 fL (80-94); Mean Platelet Volume 7.8 fL (7.4-10.4); Platelet Count 112 10^3/uL (150-450); Red Blood Count 3.91 10^6 /uL (4.18-5.48); Red Cell Distribution Width 19 % (10-15)
[2022-06-01 05:16] LABS: ABS Neutrophils 0.7 10^3/ul (1.5-7.7)
[2022-06-01 05:19] LABS: INR 1.53 (0.88-1.18)
[2022-06-01 05:48] LABS: Albumin 2.6 g/dL (3.2-5.2); Albumin/Globulin Ratio 1.4 (1-3); Globulin 1.8 g/dL (2-4); Potassium 3.2 mmol/L (3.5-5.0); Total Bilirubin 1.3 mg/dL (0.2-1.0); Total Protein 4.4 g/dL (6.4-8.9); eGFR CKD-EPI 66.2 (>60)
[2022-06-01 05:51] LABS: Calcium 6.4 mg/dL (8.6-10.3)
[2022-06-01] MEDS ORDERED: Norepinephrine 16MCG/ML BAGD5W 4,000 MCG/250 ML BAG IV ONE (05:55)
[2022-06-01] MEDS ORDERED: Norepinephrine 16MCG/ML BAGD5W 4,000 MCG/250 ML BAG IV SCH (06:00)
[2022-06-01] MEDS ORDERED: Calcium Gluconate 2 GM in NS 0.9% 100 ml BAG 100 ML IVPB ONE (06:00)
[2022-06-01] MEDS: Potassium EFFERVES 25 meq TAB PO ONE ×2 (06:06→06:17)
[2022-06-01] MEDS: Potassium Chlor 20 meq TAB.ER PO ONE ×2 (06:28→06:32)
[2022-06-01 06:47] LABS: Magnesium 2.1 mg/dL (1.9-2.7)
[2022-06-01] MEDS ORDERED: Potassium Chloride LIQUID 20 MEQ/15 ML LIQUID PO ONE (08:04)
[2022-06-01] MEDS ORDERED: KCL 20 MEQ/100 ML IVPREMIX 20 MEQ/100 ML BAG IV ONE (08:04)
[2022-06-01 08:27] LABS: ABS Lymphocytes 0.3 10^3/ul (1.0-4.8); Lymphocyte % 25.9 %; Nucleated Red Blood Cells % 0.3
[2022-06-01] MEDS: Multivitamins/Minerals TAB PO SCH (08:27)
[2022-06-01] MEDS ORDERED: Potassium Chlor 10 meq TAB PO SCH (09:00)
[2022-06-01] MEDS ORDERED: Digoxin IV 0.5 MG/2 ML AMP (0.25 MG/ML) IV SLOW PU ONE (09:39)
[2022-06-01 09:56] LABS: TSH Ultra Thyroid Stim Horm 0.23 mcIU/mL (0.34-5.60)
[2022-06-01 09:58] LABS: Free T4 0.99 ng/dL (0.61-1.12)
[2022-06-01] MEDS ORDERED: D5LR 1000 ml BAG 1,000 ML IV SCH (10:00)
[2022-06-01] MEDS: cefTRIAXone 1 gm/50 mL D5W 1 GM/50 ML BAG IV SCH (10:18)
[2022-06-01] MEDS: DOXYcycline 100 MG in NS 0.9% 250 ml 250 ML IVPB SCH ×2 (11:23→23:04)
[2022-06-01] MEDS: Mometasone/Formoter 200/5 MDI INH SCH ×2 (12:23→20:12)
[2022-06-01] MEDS: Pantoprazole VIAL 40 MG VIAL IV SCH (12:46)
[2022-06-01 17:07] LABS: Calcium 7.4 mg/dL (8.6-10.3); Potassium 3.7 mmol/L (3.5-5.0); eGFR CKD-EPI 92.7 (>60)
[2022-06-01] MEDS: Albuterol HFA INHALER 8 gm MDI INH SCH ×2 (18:44→20:12)
[2022-06-01] MEDS ORDERED: Cefepime 1 GM in Dextrose 1 GM/50 ML BAG IV SCH (21:00)
[2022-06-01] MEDS ORDERED: Cefepime ADVAN 1 GM in NS 0.9% 50 ML 50 ML IVPB SCH (23:30)
[2022-06-02] MEDS: Albuterol HFA INHALER 8 gm MDI INH SCH ×5 (00:36→15:23)
[2022-06-02 05:54] LABS: Hematocrit 31 % (42-52); Hemoglobin 10.5 g/dL (14.0-18.0); Mean Corpuscular HGB Conc 34 g/dL (31-36); Mean Corpuscular Hemoglobin 30 pg (27-31); Mean Corpuscular Volume 89 fL (80-94); Red Cell Distribution Width 19 % (10-15); White Blood Count 2.3 10^3/uL (3.5-10.8)
[2022-06-02 06:06] LABS: INR 1.31 (0.88-1.18)
[2022-06-02 06:23] LABS: Albumin 2.5 g/dL (3.2-5.2); Albumin/Globulin Ratio 1.3 (1-3); Calcium 7.6 mg/dL (8.6-10.3); Globulin 1.9 g/dL (2-4); Magnesium 1.8 mg/dL (1.9-2.7); Phosphorus 2.2 mg/dL (2.5-5.0); Potassium 3.3 mmol/L (3.5-5.0); Total Bilirubin 0.9 mg/dL (0.2-1.0); Total Protein 4.4 g/dL (6.4-8.9); eGFR CKD-EPI 98.8 (>60)
[2022-06-02 06:48] LABS: ABS Lymphocytes 0.4 10^3/ul (1.0-4.8); ABS Monocytes 0.2 10^3/ul (0-0.8); ABS Neutrophils 1.8 10^3/ul (1.5-7.7); Eosinophil % 0.2 %; Lymphocyte % 16.3 %; Mean Platelet Volume 8.5 fL (7.4-10.4); Nucleated Red Blood Cells % 0.1; Platelet Count 99 10^3/uL (150-450)
[2022-06-02] MEDS ORDERED: Magnesium Sulfate 2 gm BAG 2 GM/50 ML BAG IVPB ONE (07:25)
[2022-06-02] MEDS: Potassium Chloride LIQUID 20 MEQ/15 ML LIQUID PO SCH ×2 (08:39→20:08)
[2022-06-02] MEDS: Enoxaparin 40 MG/0.4 ML SYR SUBCUT SCH (08:39)
[2022-06-02] MEDS: cefTRIAXone 1 gm/50 mL D5W 1 GM/50 ML BAG IV SCH (08:40)
[2022-06-02] MEDS: Multivitamins/Minerals TAB PO SCH (08:40)
[2022-06-02] MEDS: Remdesivir 100 mg Vial 100 MG in NS 0.9% 250 ml 230 ML IV SCH (10:45)
[2022-06-02] MEDS: DOXYcycline 100 MG in NS 0.9% 250 ml 250 ML IVPB SCH ×2 (10:57→22:22)
[2022-06-02] MEDS: Pantoprazole VIAL 40 MG VIAL IV SCH (10:57)
[2022-06-02] MEDS: Mometasone/Formoter 200/5 MDI INH SCH (12:06)
[2022-06-02] MEDS ORDERED: Albuterol HFA INHALER 8 gm MDI INH PRN (15:26)
[2022-06-03 06:38] LABS: Hematocrit 29 % (42-52); Hemoglobin 9.8 g/dL (14.0-18.0); Mean Corpuscular HGB Conc 34 g/dL (31-36); Mean Corpuscular Hemoglobin 30 pg (27-31); Mean Corpuscular Volume 89 fL (80-94); Mean Platelet Volume 9.7 fL (7.4-10.4); Platelet Count 114 10^3/uL (150-450); Red Blood Count 3.25 10^6 /uL (4.18-5.48); Red Cell Distribution Width 20 % (10-15); White Blood Count 3.6 10^3/uL (3.5-10.8)
[2022-06-03 06:58] LABS: INR 1.24 (0.88-1.18)
[2022-06-03 07:30] LABS: ALT 27 U/L (7-52); Albumin 2.5 g/dL (3.2-5.2); Albumin/Globulin Ratio 1.2 (1-3); Alkaline Phosphatase 102 U/L (35-149); Blood Urea Nitrogen 46 mg/dL (6-24); CO2 Carbon Dioxide 24 mmol/L (22-32); Calcium 7.5 mg/dL (8.6-10.3); Chloride 106 mmol/L (101-111); Globulin 2.1 g/dL (2-4); Glucose 138 mg/dL (70-100); Sodium 144 mmol/L (135-145); Total Protein 4.6 g/dL (6.4-8.9); eGFR CKD-EPI 96.7 (>60)
[2022-06-03 07:35] LABS: Anion Gap 14 mmol/L (2-11)
[2022-06-03] MEDS: Multivitamins/Minerals TAB PO SCH (08:23)
[2022-06-03] MEDS: Enoxaparin 40 MG/0.4 ML SYR SUBCUT SCH (08:23)
[2022-06-03] MEDS: cefTRIAXone 1 gm/50 mL D5W 1 GM/50 ML BAG IV SCH (09:00)
[2022-06-03] MEDS: Remdesivir 100 mg Vial 100 MG in NS 0.9% 250 ml 230 ML IV SCH (09:00)
[2022-06-03 09:07] LABS: ABS Lymphocytes 0.6 10^3/ul (1.0-4.8); ABS Monocytes 0.4 10^3/ul (0-0.8); ABS Neutrophils 2.6 10^3/ul (1.5-7.7); Eosinophil % 0.1 %; Lymphocyte % 16.4 %
[2022-06-03 09:41] LABS: Magnesium 2.1 mg/dL (1.9-2.7); Potassium Redraw 4.4 mmol/L (3.5-5.0)
[2022-06-03] MEDS ORDERED: D5LR 1000 ml BAG 1,000 ML IV SCH (10:00)
[2022-06-03] MEDS: DOXYcycline 100 MG in NS 0.9% 250 ml 250 ML IVPB SCH ×2 (10:30→21:47)
[2022-06-03] MEDS: FLUTICAS/UMECLI/VILANT 100-62.5-25 MDI (NF) INH SCH (12:01)
[2022-06-03] MEDS: Pantoprazole VIAL 40 MG VIAL IV SCH (12:17)
[2022-06-03] MEDS ORDERED: Lorazepam PYXIS KEY ONE (21:38)
[2022-06-04 04:34] LABS: Hematocrit 33 % (42-52); Hemoglobin 10.9 g/dL (14.0-18.0); Mean Corpuscular HGB Conc 34 g/dL (31-36); Mean Corpuscular Hemoglobin 30 pg (27-31); Mean Corpuscular Volume 89 fL (80-94); Mean Platelet Volume 8.2 fL (7.4-10.4); Platelet Count 106 10^3/uL (150-450); Red Blood Count 3.66 10^6 /uL (4.18-5.48); Red Cell Distribution Width 20 % (10-15); White Blood Count 4.5 10^3/uL (3.5-10.8)
[2022-06-04 04:58] LABS: ALT 27 U/L (7-52); Albumin 2.6 g/dL (3.2-5.2); Albumin/Globulin Ratio 1.2 (1-3); Alkaline Phosphatase 110 U/L (35-149); Blood Urea Nitrogen 44 mg/dL (6-24); CO2 Carbon Dioxide 23 mmol/L (22-32); Calcium 7.2 mg/dL (8.6-10.3); Chloride 107 mmol/L (101-111); Globulin 2.2 g/dL (2-4); Glucose 151 mg/dL (70-100); Sodium 140 mmol/L (135-145); Total Protein 4.8 g/dL (6.4-8.9); eGFR CKD-EPI 97.5 (>60)
[2022-06-04 05:09] LABS: ABS Lymphocytes 0.7 10^3/ul (1.0-4.8); ABS Monocytes 0.6 10^3/ul (0-0.8); ABS Neutrophils 3.2 10^3/ul (1.5-7.7); Anion Gap 10 mmol/L (2-11); Lymphocyte % 15.4 %; Nucleated Red Blood Cells % 0.1
[2022-06-04] MEDS: FLUTICAS/UMECLI/VILANT 100-62.5-25 MDI (NF) INH SCH (08:17)
[2022-06-04] MEDS: Multivitamins/Minerals TAB PO SCH (08:46)
[2022-06-04] MEDS: Enoxaparin 40 MG/0.4 ML SYR SUBCUT SCH (08:47)
[2022-06-04] MEDS: Remdesivir 100 mg Vial 100 MG in NS 0.9% 250 ml 230 ML IV SCH (08:47)
[2022-06-04] MEDS: cefTRIAXone 1 gm/50 mL D5W 1 GM/50 ML BAG IV SCH (10:14)
[2022-06-04] MEDS: DOXYcycline 100 MG in NS 0.9% 250 ml 250 ML IVPB SCH ×2 (11:11→20:54)
[2022-06-04] MEDS: Pantoprazole VIAL 40 MG VIAL IV SCH (12:17)
[2022-06-04] MEDS ORDERED: Furosemide 40 mg/4 ml IV VIAL IV ONE (12:56)
[2022-06-04 14:47] LABS: INR 1.42 (0.88-1.18)
[2022-06-04 15:26] LABS: Magnesium 1.6 mg/dL (1.9-2.7); Potassium Redraw 3.9 mmol/L (3.5-5.0)
[2022-06-04] MEDS ORDERED: Magnesium Sulfate IV 3 GM in NS 0.9% 100 ml BAG 100 ML IVPB ONE (15:40)
[2022-06-05] MEDS: FLUTICAS/UMECLI/VILANT 100-62.5-25 MDI (NF) INH SCH (07:28)
[2022-06-05] MEDS: Multivitamins/Minerals TAB PO SCH (08:59)
[2022-06-05] MEDS: Enoxaparin 40 MG/0.4 ML SYR SUBCUT SCH (09:00)
[2022-06-05] MEDS: Remdesivir 100 mg Vial 100 MG in NS 0.9% 250 ml 230 ML IV SCH (09:00)
[2022-06-05] MEDS: cefTRIAXone 1 gm/50 mL D5W 1 GM/50 ML BAG IV SCH (10:59)
[2022-06-05] MEDS: DOXYcycline 100 MG in NS 0.9% 250 ml 250 ML IVPB SCH ×2 (12:06→20:41)
[2022-06-05] MEDS: Pantoprazole VIAL 40 MG VIAL IV SCH (12:06)
[2022-06-06 06:15] LABS: INR 1.35 (0.88-1.18)
[2022-06-06 06:26] LABS: Albumin 2.7 g/dL (3.2-5.2); Calcium 7.2 mg/dL (8.6-10.3); Potassium 3.3 mmol/L (3.5-5.0); Total Bilirubin 0.8 mg/dL (0.2-1.0)
[2022-06-06 06:32] LABS: Albumin/Globulin Ratio 1.5 (1-3); Globulin 1.8 g/dL (2-4); Total Protein 4.5 g/dL (6.4-8.9); eGFR CKD-EPI 103.6 (>60)
[2022-06-06] MEDS: FLUTICAS/UMECLI/VILANT 100-62.5-25 MDI (NF) INH SCH (07:34)
[2022-06-06] MEDS: Multivitamins/Minerals TAB PO SCH (08:20)
[2022-06-06] MEDS: Enoxaparin 40 MG/0.4 ML SYR SUBCUT SCH (08:22)
[2022-06-06] MEDS: cefTRIAXone 1 gm/50 mL D5W 1 GM/50 ML BAG IV SCH (09:10)
[2022-06-06] MEDS: Amoxicillin/Clavul 875/125 TAB (Augmentin 875 tab) PO SCH (20:42)
[2022-06-07 06:28] LABS: Hematocrit 34 % (42-52); Hemoglobin 11.6 g/dL (14.0-18.0); Mean Corpuscular HGB Conc 34 g/dL (31-36); Mean Corpuscular Hemoglobin 30 pg (27-31); Mean Corpuscular Volume 88 fL (80-94); Mean Platelet Volume 8.8 fL (7.4-10.4); Platelet Count 225 10^3/uL (150-450); Red Blood Count 3.85 10^6 /uL (4.18-5.48); Red Cell Distribution Width 20 % (10-15); White Blood Count 7.7 10^3/uL (3.5-10.8)
[2022-06-07 06:44] LABS: Calcium 7.2 mg/dL (8.6-10.3); Magnesium 1.6 mg/dL (1.9-2.7); Potassium 2.9 mmol/L (3.5-5.0)
[2022-06-07 06:50] LABS: eGFR CKD-EPI 97.5 (>60)
[2022-06-07] MEDS ORDERED: Magnesium Sulf 4 GM/100 ML IV 4,000 MG/100 ML BAG IVPB ONE (07:26)
[2022-06-07] MEDS ORDERED: Magnesium Sulfate 2 gm BAG 2 GM/50 ML BAG IVPB ONE (07:29)
[2022-06-07] MEDS: FLUTICAS/UMECLI/VILANT 100-62.5-25 MDI (NF) INH SCH (07:37)
[2022-06-07] MEDS: Enoxaparin 40 MG/0.4 ML SYR SUBCUT SCH (08:24)
[2022-06-07] MEDS: Multivitamins/Minerals TAB PO SCH (08:25)
[2022-06-07] MEDS: Amoxicillin/Clavul 875/125 TAB (Augmentin 875 tab) PO SCH ×2 (08:25→21:01)
[2022-06-07 08:49] LABS: ABS Eosinophils 0.1 10^3/ul (0-0.6); ABS Lymphocytes 0.9 10^3/ul (1.0-4.8); ABS Monocytes 0.3 10^3/ul (0-0.8); ABS Neutrophils 6.4 10^3/ul (1.5-7.7); Anisocytosis 1+; Eosinophil % 0.7 %
[2022-06-07] MEDS ORDERED: Magnesium Hydroxide LIQ 30 ML UDC PO PRN (09:02)
[2022-06-07] MEDS: KCL 20 MEQ/100 ML IVPREMIX 20 MEQ/100 ML BAG IV SCH ×2 (10:19→12:10)
[2022-06-07] MEDS ORDERED: Potassium Chloride LIQUID 20 MEQ/15 ML LIQUID PO ONE (12:13)
[2022-06-07 15:29] LABS: Calcium 7.1 mg/dL (8.6-10.3); Magnesium 2.3 mg/dL (1.9-2.7); Potassium 3.9 mmol/L (3.5-5.0); eGFR CKD-EPI 95.5 (>60)
[2022-06-07] MEDS ORDERED: Lactated Ringers 1000 ml BAG 1,000 ML IV SCH (19:00)
[2022-06-08] MEDS: FLUTICAS/UMECLI/VILANT 100-62.5-25 MDI (NF) INH SCH (08:33)
[2022-06-08] MEDS: Multivitamins/Minerals TAB PO SCH (08:55)
[2022-06-08] MEDS: Enoxaparin 40 MG/0.4 ML SYR SUBCUT SCH (08:56)
[2022-06-08 10:50] LABS: Hematocrit 38 % (42-52); Hemoglobin 12.4 g/dL (14.0-18.0); Mean Corpuscular HGB Conc 33 g/dL (31-36); Mean Corpuscular Hemoglobin 30 pg (27-31); Mean Corpuscular Volume 91 fL (80-94); Platelet Count 241 10^3/uL (150-450); Red Blood Count 4.11 10^6 /uL (4.18-5.48); Red Cell Distribution Width 20 % (10-15); White Blood Count 10.2 10^3/uL (3.5-10.8)
[2022-06-08 11:15] LABS: Calcium 7.6 mg/dL (8.6-10.3)
[2022-06-08 11:20] LABS: eGFR CKD-EPI 102.1 (>60)
[2022-06-08 11:41] LABS: Kappa Free Light Chain 1.77 mg/dL; Lambda Free Light Chain, S 1.75 mg/dL
[2022-06-08 11:44] LABS: Potassium 2.8 mmol/L (3.5-5.0)
[2022-06-08 12:29] LABS: ABS Eosinophils 0.1 10^3/ul (0-0.6); ABS Lymphocytes 1.3 10^3/ul (1.0-4.8); ABS Monocytes 0.4 10^3/ul (0-0.8); ABS Neutrophils 8.3 10^3/ul (1.5-7.7); Eosinophil % 1.3 %; Lymphocyte % 13.1 %
[2022-06-08] MEDS ORDERED: Potassium Chloride LIQUID 20 MEQ/15 ML LIQUID PO ONE (13:01)
[2022-06-08 23:39] LABS: Albumin 2.4 g/dL (3.4-4.7); Albumin/Globulin Ratio 1.01; Gamma Globulin 0.6 g/dL (0.6-1.6); Total Protein(PEP) 4.8 g/dL (6.3 - 7.9)
[2022-06-09 08:01] LABS: Calcium 7.3 mg/dL (8.6-10.3); Potassium 3.7 mmol/L (3.5-5.0); eGFR CKD-EPI 100.6 (>60)
[2022-06-09] MEDS: FLUTICAS/UMECLI/VILANT 100-62.5-25 MDI (NF) INH SCH (09:08)
[2022-06-09] MEDS: Enoxaparin 40 MG/0.4 ML SYR SUBCUT SCH (11:38)
[2022-06-09] MEDS: Multivitamins/Minerals TAB PO SCH (11:39)
[2022-06-09 11:49] LABS: Chromogranin A 429 ng/mL (<93)
[2022-06-09 12:23] LABS: Magnesium 1.7 mg/dL (1.9-2.7)
[2022-06-09] MEDS ORDERED: Magnesium Sulfate 2 gm BAG 2 GM/50 ML BAG IVPB ONE (13:08)
[2022-06-09] MEDS: Potassium Chlor 20 meq TAB.ER PO SCH (15:09)
[2022-06-10] MEDS ORDERED: Senna TAB 8.6 mg TAB PO PRN (07:42)
[2022-06-10] MEDS ORDERED: Polyethylene Glycol 3350 17 GM PACKET PO PRN (07:42)
[2022-06-10] MEDS ORDERED: Magnesium Hydroxide LIQ 30 ML UDC PO ONE (07:43)
[2022-06-10 07:46] LABS: Calcium 7.1 mg/dL (8.6-10.3); Magnesium 1.8 mg/dL (1.9-2.7); Potassium 3.6 mmol/L (3.5-5.0); eGFR CKD-EPI 101.1 (>60)
[2022-06-10] MEDS: Magnesium Sulfate 2 gm BAG 2 GM/50 ML BAG IVPB ONE ×2 (08:29→09:40)
[2022-06-10] MEDS: Enoxaparin 40 MG/0.4 ML SYR SUBCUT SCH (08:31)
[2022-06-10] MEDS: Potassium Chlor 20 meq TAB.ER PO SCH (08:31)
[2022-06-10] MEDS: Multivitamins/Minerals TAB PO SCH (08:33)
[2022-06-10] MEDS: FLUTICAS/UMECLI/VILANT 100-62.5-25 MDI (NF) INH SCH (08:39)
[2022-06-11] MEDS: FLUTICAS/UMECLI/VILANT 100-62.5-25 MDI (NF) INH SCH (07:50)
[2022-06-11 09:33] LABS: Calcium 7.5 mg/dL (8.6-10.3); Magnesium 1.9 mg/dL (1.9-2.7); Potassium 3.7 mmol/L (3.5-5.0); eGFR CKD-EPI 105.3 (>60)
[2022-06-11] MEDS: Potassium Chlor 20 meq TAB.ER PO SCH (10:16)
[2022-06-11] MEDS: Enoxaparin 40 MG/0.4 ML SYR SUBCUT SCH (10:16)
[2022-06-11] MEDS: Multivitamins/Minerals TAB PO SCH (10:16)
[2022-06-12] MEDS: FLUTICAS/UMECLI/VILANT 100-62.5-25 MDI (NF) INH SCH (07:33)
[2022-06-12] MEDS: Enoxaparin 40 MG/0.4 ML SYR SUBCUT SCH (09:23)
[2022-06-12] MEDS: Potassium Chlor 20 meq TAB.ER PO SCH ×2 (09:24→22:53)
[2022-06-12] MEDS: Multivitamins/Minerals TAB PO SCH (09:24)
[2022-06-13] MEDS: FLUTICAS/UMECLI/VILANT 100-62.5-25 MDI (NF) INH SCH (08:08)
[2022-06-13] MEDS: Potassium Chlor 20 meq TAB.ER PO SCH ×2 (10:34→21:19)
[2022-06-13] MEDS: Multivitamins/Minerals TAB PO SCH (10:38)
[2022-06-13] MEDS: Enoxaparin 40 MG/0.4 ML SYR SUBCUT SCH (10:38)
[2022-06-13 14:46] LABS: Potassium 4.2 mmol/L (3.5-5.0)
[2022-06-13 14:47] LABS: Calcium 7.4 mg/dL (8.6-10.3); eGFR CKD-EPI 101.6 (>60)
[2022-06-14] MEDS: FLUTICAS/UMECLI/VILANT 100-62.5-25 MDI (NF) INH SCH (08:18)
[2022-06-14] MEDS: Multivitamins/Minerals TAB PO SCH ×2 (09:00→10:42)
[2022-06-14] MEDS: Enoxaparin 40 MG/0.4 ML SYR SUBCUT SCH ×2 (09:02→10:41)
[2022-06-14] MEDS: Potassium Chlor 20 meq TAB.ER PO SCH ×3 (09:02→20:55)
[2022-06-14] MEDS ORDERED: Morphine ER 15 mg TAB ** extended release PO ONE ×2 (19:17)
[2022-06-14] MEDS ORDERED: Morphine ORAL.SOLN 10 mg 2 mg/ml UDC 5 ml (10 mg) PO ONE (20:30)
[2022-06-15] MEDS: FLUTICAS/UMECLI/VILANT 100-62.5-25 MDI (NF) INH SCH (07:53)
[2022-06-15] MEDS: Potassium Chlor 20 meq TAB.ER PO SCH ×2 (11:35→21:23)
[2022-06-15] MEDS: Enoxaparin 40 MG/0.4 ML SYR SUBCUT SCH (11:35)
[2022-06-15] MEDS: Multivitamins/Minerals TAB PO SCH (11:35)
[2022-06-15] MEDS: Morphine ORAL.SOLN 10 mg 2 mg/ml UDC 5 ml (10 mg) PO PRN ×3 (12:14→21:23)
[2022-06-16] MEDS: Morphine ORAL.SOLN 10 mg 2 mg/ml UDC 5 ml (10 mg) PO PRN ×4 (00:57→21:06)
[2022-06-16] MEDS: FLUTICAS/UMECLI/VILANT 100-62.5-25 MDI (NF) INH SCH (08:21)
[2022-06-16] MEDS: Enoxaparin 40 MG/0.4 ML SYR SUBCUT SCH ×2 (09:03→09:06)
[2022-06-16] MEDS: Potassium Chlor 20 meq TAB.ER PO SCH ×3 (09:03→21:06)
[2022-06-16] MEDS: Multivitamins/Minerals TAB PO SCH ×2 (09:03→09:05)
[2022-06-17] MEDS: Morphine ORAL.SOLN 10 mg 2 mg/ml UDC 5 ml (10 mg) PO PRN ×2 (03:41→08:36)
[2022-06-17] MEDS: FLUTICAS/UMECLI/VILANT 100-62.5-25 MDI (NF) INH SCH (07:34)
[2022-06-17] MEDS: Enoxaparin 40 MG/0.4 ML SYR SUBCUT SCH (08:35)
[2022-06-17] MEDS: Multivitamins/Minerals TAB PO SCH (08:37)
[2022-06-17] MEDS: Potassium Chlor 20 meq TAB.ER PO SCH ×2 (08:37→22:01)
[2022-06-18] MEDS: FLUTICAS/UMECLI/VILANT 100-62.5-25 MDI (NF) INH SCH (07:09)
[2022-06-18] MEDS: Morphine ORAL.SOLN 10 mg 2 mg/ml UDC 5 ml (10 mg) PO PRN ×4 (08:00→21:23)
[2022-06-18] MEDS: Potassium Chlor 20 meq TAB.ER PO SCH ×2 (08:01→21:22)
[2022-06-18] MEDS: Enoxaparin 40 MG/0.4 ML SYR SUBCUT SCH (08:01)
[2022-06-18] MEDS: Multivitamins/Minerals TAB PO SCH (08:01)
[2022-06-19] MEDS: FLUTICAS/UMECLI/VILANT 100-62.5-25 MDI (NF) INH SCH (07:14)
[2022-06-19] MEDS: Enoxaparin 40 MG/0.4 ML SYR SUBCUT SCH (07:40)
[2022-06-19] MEDS: Multivitamins/Minerals TAB PO SCH (07:40)
[2022-06-19] MEDS: Morphine ORAL.SOLN 10 mg 2 mg/ml UDC 5 ml (10 mg) PO PRN ×2 (07:41→19:19)
[2022-06-19] MEDS: Potassium Chlor 20 meq TAB.ER PO SCH ×2 (07:41→21:08)
[2022-06-20] MEDS: FLUTICAS/UMECLI/VILANT 100-62.5-25 MDI (NF) INH SCH (08:01)
[2022-06-20] MEDS: Morphine ORAL.SOLN 10 mg 2 mg/ml UDC 5 ml (10 mg) PO PRN (08:36)
[2022-06-20] MEDS: Potassium Chlor 20 meq TAB.ER PO SCH (09:07)
[2022-06-20] MEDS: Enoxaparin 40 MG/0.4 ML SYR SUBCUT SCH (09:07)
[2022-06-20] MEDS: Multivitamins/Minerals TAB PO SCH (09:07)
[2022-06-20 10:00] VITALS: BP 105/60
== END 2022-06-20 13:05 | disposition swing bed (61) | DRG 871 ==
LOC: ED 23:16 → EDHOLD 06-01 02:51 → SUATTDRO 06-01 02:51 → ICU 06-01 07:21 → MEDTELE 06-04 17:27
PROVIDERS: ADMIT Internal Medicine; ATTEND Internal Medicine

== ENCOUNTER 2022-06-20 14:22 | Inpatient (IN) ==
[2022-06-20] MEDS ORDERED: Senna TAB 8.6 mg TAB PO PRN (15:06)
[2022-06-20] MEDS ORDERED: Polyethylene Glycol 3350 17 GM PACKET PO PRN (15:06)
[2022-06-20] MEDS ORDERED: Albuterol HFA INHALER 8 gm MDI INH PRN (15:06)
[2022-06-20] MEDS: Morphine ORAL.SOLN 10 mg 2 mg/ml UDC 5 ml (10 mg) PO PRN ×2 (15:58→19:10)
[2022-06-20] MEDS: Potassium Chlor 20 meq TAB.ER PO SCH (21:44)
[2022-06-21] MEDS: Morphine ORAL.SOLN 10 mg 2 mg/ml UDC 5 ml (10 mg) PO PRN ×4 (00:23→23:01)
[2022-06-21] MEDS: FLUTICAS/UMECLI/VILANT 100-62.5-25 MDI (NF) INH SCH (07:57)
[2022-06-21] MEDS: Enoxaparin 40 MG/0.4 ML SYR SUBCUT SCH (10:16)
[2022-06-21] MEDS: Multivitamins/Minerals TAB PO SCH (10:17)
[2022-06-21] MEDS: Potassium Chlor 20 meq TAB.ER PO SCH ×2 (10:17→22:23)
[2022-06-22] MEDS: FLUTICAS/UMECLI/VILANT 100-62.5-25 MDI (NF) INH SCH (07:50)
[2022-06-22] MEDS: Multivitamins/Minerals TAB PO SCH (09:07)
[2022-06-22] MEDS: Potassium Chlor 20 meq TAB.ER PO SCH (09:08)
[2022-06-22] MEDS: Morphine ORAL.SOLN 10 mg 2 mg/ml UDC 5 ml (10 mg) PO PRN (09:09)
[2022-06-22] MEDS: Enoxaparin 40 MG/0.4 ML SYR SUBCUT SCH (09:14)
[2022-06-22 09:17] VITALS: BP 109/58
== END 2022-06-22 14:50 | DRG 722 ==
LOC: MEDTELE 14:22 → SUATTDRO 15:27
PROVIDERS: ADMIT Student in an Organized Health Care Education/Training Program; ATTEND Internal Medicine